=== PATIENT | female | born 1985 | race Caucasian/White ===

== ENCOUNTER 2017-06-03 09:00 | Outpatient (CLI) | payer BC ==
--- NOTE | 2017-06-03 16:12 | MRI ---
BRAIN MRI WITH AND WITHOUT CONTRAST: Date: 06-03-17 Comparison: 04-04-16 History: Seizures, speech abnormality, history of left sided craniotomy, re-evaluate left frontal lob e lesion. Technique: Multiplanar, multisequence MR imaging of the brain obtained with and without contrast usin g the seizure protocol. FINDINGS: The diffusion weighted imaging demonstrates no evidence for acute infarction. There is polypoid mucosal thickening involving bilateral maxillary sinuses and the right sphenoid sin us. Arterial flow voids at axial level of skull base appear grossly unremarkable on the T2 weighted i maging. There is evidence of prior left frontal craniotomy. There is no midline shift, mass effect, or ventricular enlargement. Coronal gradient echo imaging demonstrates no evidence for intracranial hemorrhage or abnormal intrac ranial calcification. Coronal thin section imaging through the hippocampi demonstrates symmetric normal structure size and signal intensity of the hippocampi. The regional bone marrow signal intensity is within normal limits. There is an intraaxial lesion centered in the posterolateral left frontal lobe with increased T2 sign al involving the subcortical white matter. This area of signal abnormality is much smaller than on [facility] 02-19-12 study. When compared to the 04-04-16 exam, this area of subcortical T2 hyperintensity appea rs grossly unchanged. It is difficult to accurately measure secondary to its ill-defined nature. It m easures up to 2.1 cm in AP dimension and up to 1.9 cm in transverse dimension. There is a T2 hyperint ense 1.4 cm area of signal abnormality just anterior to this which may be extraaxial in nature. It is unchanged when compared to the 04-04-16 exam. Within the area of intraaxial signal abnormality descri bed above, there is a focal 5-6 mm T2 hyperintense focus suggesting an area of internal cystic change . The post contrast imaging again demonstrates no significant enhancement involving the left frontal intraaxial lesion. Post contrast imaging demonstrates no abnormal enhancement within the brain parenchyma. IMPRESSION: Deep to the left frontal craniotomy site there is an intraaxial lesion with no appreciable enhancemen t or mass effect. 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 Continued follow up is thus advised. POS: [facility]
== END 2017-06-03 09:01 | disposition home or self-care (01) ==
LOC: MRI 09:00
PROVIDERS: ATTEND Student in an Organized Health Care Education/Training Program
DX: R56.9 Unspecified convulsions (principal); R47.9 Unspecified speech disturbances; M62.81 Muscle weakness (generalized); R20.0 Anesthesia of skin; C71.1 Malignant neoplasm of frontal lobe; G93.9 Disorder of brain, unspecified
CPT/HCPCS: 70553

== ENCOUNTER 2019-06-15 15:07 | Inpatient (IN) | payer BC ==
[2019-06-15] MEDS ORDERED: Enoxaparin Sodium 100 MG/ML SYRINGE ONE (16:11)
[2019-06-15 16:32] LABS: #Lymphocytes 2.7 thou/uL (1.20-3.40); #Monocytes 0.8 thou/uL (0.11-0.59); #Neutrophils 8.5 thou/uL (1.40-6.50); %Basophils 0.3 % (0.0-1.0); %Eosinophils 0.3 % (0.0-10.0); %Lymphocytes 22.4 % (21.0-51.0); %Monocytes 6.4 % (0.0-10.0); %Neutrophils 70.7 % (42.0-75.0); Mean Corpuscular HGB CONC 34.5 g/dL (32.0-36.0); Mean Corpuscular Hemoglobin 33.1 pg (27.0-31.0); Mean Corpuscular Volume 95.9 fL (78.0-98.0); Mean Platelet Volume 8.3 fL (7.4-10.4); Platelet Count 207 thou/uL (130-400); RBC Distribution Width 11.9 % (11.5-14.5); Red Blood Cell (RBC) Count 4.83 mill/uL (4.20-5.40)
--- NOTE | 2019-06-15 16:32 | RAD ---
Exam: Chest one view HISTORY:Dyspnea Comparison: 07/06/2012 FINDINGS: Cardiac silhouette: Normal Aorta: Unremarkable Pulmonary vessels: Normal Costophrenic angles: Clear LUNGS: No masses or consolidation. Pneumothorax: None Osseous abnormalities: None IMPRESSION: No acute cardiopulmonary process.
[2019-06-15 16:35] LABS: INR-International Normal Ratio 1.1; Prothrombin Time 13.7 SEC (12.0-14.7)
[2019-06-15 16:36] LABS: PTT 27.8 SEC (22.9-36.1)
[2019-06-15 17:01] LABS: ALT (SGPT) 13 U/L (8-55); AST (SGOT) 18 U/L (5-34); Albumin 4.3 g/dL (3.5-5.0); Alkaline Phosphatase 96 U/L (40-110); Anion Gap 19 mmol/L (10-20); BUN (Urea Nitrogen) 13 mg/dL (7.0-18.7); Bilirubin, Total 0.7 mg/dL (0.2-1.2); Calc. Creatinine Clearance 0 mL/min (70-130); Calcium 9.5 mg/dL (7.8-10.44); Carbon Dioxide 17 mmol/L (22-29); Chloride 108 mmol/L (98-107); Estimated GFR-MDRD 51; Globulin 3.3 g/dL (2.4-3.5); Glucose 82 mg/dL (70-105); Potassium 3.9 mmol/L (3.5-5.1); Protein, Total 7.6 g/dL (6.0-8.3); Sodium 140 mmol/L (136-145)
[2019-06-15 17:13] LABS: CKMB 2.2 ng/mL (0-6.6)
[2019-06-15] MEDS ORDERED: Senokot S 8.6-50 MG TAB PO PRN (18:03)
[2019-06-15] MEDS ORDERED: Ondansetron PF 4 MG/2 ML Vial IVP PRN (18:03)
[2019-06-15] MEDS ORDERED: Acetaminophen 325 MG TAB PO PRN (18:03)
--- NOTE | 2019-06-15 18:21 | PDOC.HHP ---
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 Denies any manohar chest pain, lightheadedness/dizziness. Tells me that she has not been moving much given right sided weakness. During initial ED evaluation she is noted to have acute pulmonary embolism/ saddle and acute DVT. Hemodynamically she appears stable only with tachycardia in the 120s but maintaining good blood pressure and saturation on room air. Case was discussed with neurosurgery and pulmonary medicine marketing operations intern who have recommended AC with Lovenox and against use of thrombolytics. Hospitalist ROS - Review of Systems Constitutional: denies: fever, chills, sweats, weakness, malaise, other Eyes: denies: pain, vision change, conjunctivae inflammation, eyelid inflammation, redness, other Respiratory: reports: shortness of breath, SOB with excertion. denies: cough, pleuritic pain, wheezing Cardiovascular: denies: chest pain, palpitations, orthopnea, paroxysmal noc. dyspnea, edema Gastrointestinal: denies: nausea, vomiting, abdominal pain, diarrhea Genitourinary: denies: dysuria, frequency, incontinence Musculoskeletal: denies: neck pain, shoulder pain Neurological: reports: weakness (Right sided upper and lower extremity weakness likely due to ischemic stroke). denies: numbness, change in speech, confusion - Medication Medications: Keppra oral SatJun 15, 2019 15:29 GIOVANNY Muse [place] tablet : Strength - 500 mg : ORAL Patient Dose: 1 tab(s) Oral 2 times a day. "BLOOD PRESSURE MEDICATION" SatJun 15, 2019 15:30 GIOVANNY Muse [place] UNKNOWN. aspirin oral SatJun 15, 2019 17:58 GIOVANNY Muse [place] tablet : Strength - 81 mg : ORAL Patient Dose: 1 tab(s) Oral once a day. Hospitalist History - Past Medical History Pulmonary: reports: CVA/TIA/stroke SPOOL TENDER: reports: CVA, Seizure Heme/Onc: reports: Cancer - Past Surgical History Past Surgical History: reports: Other (Attempted brain tumor resection) - Family History Family History: reports: no pertinent history - Exam General Appearance: NAD, awake alert Eye: PERRL, anicteric sclera ENT: normocephalic atraumatic, no oropharyngeal lesions Neck: supple, symmetric, no JVD Heart: no murmur, no gallops, no rubs Heart - other findings: Tachycardic Respiratory: CTAB, no wheezes Extremities: no cyanosis, no clubbing, no edema Neurological: cranial nerve grossly intact Neurological - other findings: Righ sided weakness/hemiparesis Musculoskeletal: normal tone. negative: normal strength (Right sided upper/ lower extremity weakness 2/5) Psychiatric: normal affect, normal behavior, A&O x 3, oriented to person Hospitalist Results - Labs Result Diagrams: 06/15/19 16:23 06/15/19 16:23 Lab results: WBC 12.0 thou/uL (4.8-10.8) H 06/15/19 16:23 Hgb 16.0 g/dL (12.0-16.0) 06/15/19 16:23 Hct 46.3 % (36.0-47.0) 06/15/19 16:23 MCV 95.9 fL (78.0-98.0) 06/15/19 16:23 Plt Count 207 thou/uL (130-400) 06/15/19 16:23 Neutrophils % 70.7 % (42.0-75.0) 06/15/19 16:23 Sodium 140 mmol/L (136-145) 06/15/19 16:23 Potassium 3.9 mmol/L (3.5-5.1) 06/15/19 16:23 Chloride 108 mmol/L (98-107) H 06/15/19 16:23 Carbon Dioxide 17 mmol/L (22-29) L 06/15/19 16:23 BUN 13 mg/dL (7.0-18.7) 06/15/19 16:23 Creatinine 1.20 mg/dL (0.6-1.1) H 06/15/19 16:23 Glucose 82 mg/dL (70-105) 06/15/19 16:23 Calcium 9.5 mg/dL (7.8-10.44) 06/15/19 16:23 Total Bilirubin 0.7 mg/dL (0.2-1.2) 06/15/19 16:23 AST 18 U/L (5-34) 06/15/19 16:23 ALT 13 U/L (8-55) 06/15/19 16:23 Alkaline Phosphatase 96 U/L (40-110) 06/15/19 16:23 CK-MB (CK-2) 2.2 ng/mL (0-6.6) 06/15/19 16:23 Troponin I 0.146 ng/mL (< 0.028) H 06/15/19 16:23 B-Natriuretic Peptide 257.5 pg/mL (0-100) H 06/15/19 16:23 Serum Total Protein 7.6 g/dL (6.0-8.3) 06/15/19 16:23 Albumin 4.3 g/dL (3.5-5.0) 06/15/19 16:23 - Radiology Interpretation CT scan - chest Status: report reviewed by me (Offical report showing acute PE reviewed) Hospitalist H&P A/P - Problem (1) Pulmonary embolism Code(s): I26.99 - OTHER PULMONARY EMBOLISM WITHOUT ACUTE COR PULMONALE Status : Acute Qualifiers: Pulmonary embolism type: saddle Chronicity: acute Acute cor pulmonale presence: unspecified Qualified Code(s): I26.92 - Saddle embolus of pulmonary artery without acute cor pulmonale (2) DVT (deep venous thrombosis) Code(s): I82.409 - ACUTE EMBOLISM AND THOMBOS UNSP DEEP VN UNSP LOWER EXTREMITY Status: Acute (3) CVA (cerebral vascular accident) Code(s): I63.9 - CEREBRAL INFARCTION, UNSPECIFIED Status: Acute (4) Brain cancer Code(s): C71.9 - MALIGNANT NEOPLASM OF BRAIN, UNSPECIFIED Status: Chronic (5) Seizure disorder Code(s): G40.909 - EPILEPSY, UNSP, NOT INTRACTABLE, WITHOUT STATUS EPILEPTICUS Status: Chronic - Plan Plan: ASSESSMENT/PLAN Acute pulmonary embolism/saddle Admit patient to CCU for closer monitoring Currently hemodynamically stable only with borderline tachycardia Started on therapeutic Lovenox after discussion with neurosurgery and pulmonary medicine Continue with gentle IVFs to maintain hemodynamics Check echocardiogram in AM to assess right heart strain DVT Likely in setting of recent imobility due to weakness after CVA On exam maintaining pulses with no evidence of vascular compromise Originating source for PE Started on therapeutic Lovenox for anticoagulation Avoid SCDs Brain tumor Presumed recurrence of tumor based on recent MRI Per recent imaging no mass effect or edema She does have new onset of right sided weakness Neurosurgery follows Seizure disorder Per patient this occurred after tumor treatment No recent seizure activity per patient She was recently evaluated due to right sided weakness which remains & not consistent with seizure Continue with Keppra Seizure precautions for now DVT PPX: Therapeutic Lovenox FULL CODE
[2019-06-15 19:42] VITALS: BMI 41.7
[2019-06-15] MEDS ORDERED: niCARdipine 25 MG in Sodium Chloride 0.9% 250 ML 240 ML IVPB SCH (20:00)
[2019-06-15] MEDS ORDERED: cloNIDine 0.1 MG TAB PO SCH (20:15)
[2019-06-15] MEDS: Famotidine/PF 20 mg/2ml Vial SLOW IVP SCH (20:21)
[2019-06-15] MEDS: Sodium Chloride 0.9% 1,000 ML IV SCH (20:21)
--- NOTE | 2019-06-15 21:31 | CON ---
DATE OF CONSULTATION: 06/15/2019 HISTORY OF PRESENT ILLNESS: Carly Cardenas is a very pleasant 33-year-old female who presented with symptoms of waxing and waning right hemiparesis recently. She presented to [facility]. They told her she was having a seizure and sent her home. She got home, got upstairs and said she lost all function of her right side. She apparently had an MRI done shortly thereafter and discussed the MRI findings with Dr. Allen, who felt she had a stroke. Reviewing the MRI report from June 03, the interpretation was an intra-axial lesion with no enhancement or mass effect. The radiologist interpreted it as a low-grade neoplasm, but she is 9 years out, she tells me from her neoplasm. She had an MRI done in April 04, 2016, which apparently was similar. Today, she developed tachycardia and some respiratory symptoms and subsequently presented to the emergency room, was found to have evidence of thromboembolic disease. She was felt to be an acceptable candidate for Lovenox, but it was not recommended that she have a thrombolytic. I interviewed her and she is actually talking comfortably on room air. I suspect this is subacute. Venogram shows a partial thrombus in the right lower extremity involving the popliteal vein and the posterior tibial vein, but there is no clot in the proximal large veins. PAST MEDICAL HISTORY: Remarkable for hypertension. She cannot remember the name of the medicine she takes. Apparently, [facility] started her on Keppra from what she tells me. She had an incomplete resection of her brain tumor as they were getting into her speech center, so she apparently had stereotactic radiation after that followed by chemotherapy. She is followed at [facility] for at least 4 years after that and then followed by her neurosurgeon in [place] until he several years back. FAMILY HISTORY: Negative for lung disease in early age. SOCIAL HISTORY: Not obtained. REVIEW OF SYSTEMS: 10 point review of systems completed, otherwise negative. PHYSICAL EXAMINATION: GENERAL: She is in no distress, talking in complete sentences. VITAL SIGNS: She has resting tachycardia with heart rate of 112. She is in sinus rhythm. She is mildly hypertensive at 145/110. Respiratory rate is in the 20s. NEUROLOGIC: She is weak in her right upper extremity and cannot move her right lower extremity, she says. HEAD AND NECK: Otherwise unremarkable. LUNGS: Clear. HEART: Regular rhythm. S1 and S2 are normal. ABDOMEN: Soft and nontender. EXTREMITIES: Without clubbing, cyanosis or edema. LABORATORY DATA: White count 12, hemoglobin 16, platelets 207. Sodium 140, potassium 3.9, chloride 108, bicarb 17, BUN 13, creatinine 1.2. IMPRESSION: Thromboembolic disease secondary to her hemiparesis and bedridden state. I doubt she has a hypercoagulable state, but the thrombosis panel needs to be sent since she is 33 years of age. Lovenox is reasonable. I think she should be in the Critical Care Unit for now, watch for signs of bleeding or any change in her neurological status. I suspect she will gradually improve. Given that she has distal residual clot, there is no indication for placement of a filter at this point in time in my opinion. This is a 70-minute consult, with greater than 50% of the time spent on the unit coordinating care. Job ID: [id number] MTDD
[2019-06-15 23:03] LABS: Troponin I 0.137 ng/mL (< 0.028)
[2019-06-16 03:19] LABS: #Basophils 0.1 thou/uL (0.0-0.2); #Eosinphils 0.1 thou/uL (0.0-0.7); #Lymphocytes 2.4 thou/uL (1.20-3.40); #Monocytes 0.7 thou/uL (0.11-0.59); #Neutrophils 7.4 thou/uL (1.40-6.50); %Basophils 0.5 % (0.0-1.0); %Eosinophils 0.5 % (0.0-10.0); %Lymphocytes 22.7 % (21.0-51.0); %Monocytes 6.2 % (0.0-10.0); Hemoglobin 14.3 g/dL (12.0-16.0); Mean Corpuscular HGB CONC 34.6 g/dL (32.0-36.0); Mean Corpuscular Hemoglobin 33.2 pg (27.0-31.0); Mean Platelet Volume 8.3 fL (7.4-10.4); Platelet Count 191 thou/uL (130-400); RBC Distribution Width 11.9 % (11.5-14.5); White Blood Cell (WBC) Count 10.6 thou/uL (4.8-10.8)
[2019-06-16 03:40] LABS: Anion Gap 14 mmol/L (10-20); BUN (Urea Nitrogen) 13 mg/dL (7.0-18.7); Calc. Creatinine Clearance 148 mL/min (70-130); Calcium 8.9 mg/dL (7.8-10.44); Carbon Dioxide 19 mmol/L (22-29); Chloride 111 mmol/L (98-107); Estimated GFR-MDRD 64; Glucose 96 mg/dL (70-105); Potassium 3.6 mmol/L (3.5-5.1); Sodium 140 mmol/L (136-145)
[2019-06-16] MEDS: Sodium Chloride 0.9% 1,000 ML IV SCH (03:54)
[2019-06-16 03:55] LABS: PTT 36.3 SEC (22.9-36.1)
[2019-06-16 03:56] LABS: INR-International Normal Ratio 1.1; Prothrombin Time 14.6 SEC (12.0-14.7)
[2019-06-16 04:10] LABS: D-Dimer Test 5.55 *mcg/mL (0.27-0.43)
[2019-06-16] MEDS: Famotidine/PF 20 mg/2ml Vial SLOW IVP SCH (08:35)
[2019-06-16] MEDS: Enoxaparin Sodium 120 MG/0.8 ML SYRINGE SC SCH ×2 (08:35→20:03)
[2019-06-16 09:51] LABS: HEX PHOS LA Tube 1 47.3 SEC; HEX PHOS LA Tube 2 42.8 SEC; Hexagonal Phospholipid Neut 4.5 SEC (0-8.0)
[2019-06-16] MEDS ORDERED: Lacosamide 50 mg Tablet PO SCH (11:30)
[2019-06-16] MEDS ORDERED: Zonisamide 100 MG CAP PO SCH (11:30)
[2019-06-16] MEDS ORDERED: OXcarbazepine 150 MG TAB PO SCH (11:30)
[2019-06-16] MEDS ORDERED: levETIRAcetam 500 MG TAB PO SCH (11:30)
[2019-06-16 14:56] LABS: Cardiolipin IgA Ab 2.4 APL-U/mL (<14 Negative); Cardiolipin IgG Ab 0.7 GPL-U/mL (<10 Negative); EliA APS New Method **** NEW METHOD ****
--- NOTE | 2019-06-16 14:59 | PRG ---
DATE OF SERVICE: 06/16/2019 SUBJECTIVE: She says she is feeling better. She is weak in her right side, but clinically unchanged. Her hemodynamics have been stable. OBJECTIVE: VITAL SIGNS: Heart rate is 110. Her oximetry is up to 98% earlier today on room air. LUNGS: Clear. HEART: Regular rhythm. ABDOMEN: Soft. EXTREMITIES: Without edema. LABORATORY DATA: White count 10.6, hemoglobin 14.3, platelets 191,000. Sodium 140, potassium 3.6, chloride 111, bicarb 19, BUN 13, creatinine 0.99. IMPRESSION AND PLAN: 1. Thromboembolic disease that is likely subacute. 2. 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 Hopefully, we can switch her to p.o. anticoagulants tomorrow and she will go back to rehab the next day. Echocardiogram shows right ventricular strain and enlarged right ventricular cavity suggesting that she has had this clot burden for quite some time. We will continue to follow. Job ID: [id number]
[2019-06-16] MEDS: Famotidine 20 MG TAB PO SCH (20:03)
[2019-06-16] MEDS: Lacosamide 50 mg Tablet PO SCH (20:03)
[2019-06-16] MEDS: Zonisamide 100 MG CAP PO SCH (20:04)
[2019-06-16] MEDS: levETIRAcetam 500 MG TAB PO SCH (20:04)
[2019-06-16] MEDS: OXcarbazepine 150 MG TAB PO SCH (20:04)
--- NOTE | 2019-06-16 20:13 | PDOC.HOSPP ---
- Subjective Encounter Date: 06/16/19 Subjective: The patient was seen and examined this morning. She had known complaints at that time. Denies chest pain or shortness of breath. - Objective Vital Signs & Weight: Vital Signs (12 hours) Temp Pulse Ox 06/16/19 19:03 96 06/16/19 19:00 97.6 F 06/16/19 16:00 97.9 F 06/16/19 12:00 98.8 F Weight Weight 258 lb 6.108 oz Most Recent Monitor Data Heart Rate from ECG 107 NIBP 157/117 NIBP BP-Mean 130 Respiration from ECG 25 SpO2 95 I&O: 06/15/19 06/16/19 06/17/19 06:59 06:59 06:59 Intake Total 1260 1765 Output Total 750 1250 Balance 510 515 Result Diagrams: 06/16/19 03:06 06/16/19 03:03 Hospitalist ROS - Medication Medications: Active Medications Generic Name Dose Route Start Last Admin Trade Name Freq PRN Reason Stop Dose Admin Enoxaparin Sodium 120 mg 06/16/19 09:00 06/16/19 20:03 Lovenox SC 120 mg 0900,2100 COURTNEY Administration Famotidine 20 mg 06/16/19 21:00 06/16/19 20:03 Pepcid PO 20 mg Q12HR COURTNEY Administration Sodium Chloride 1,000 mls @ 0 mls/hr 06/15/19 18:15 06/16/19 03:54 Normal Saline 0.9% IV 1,000 mls .Q0M COURTNEY Administration KVO Lacosamide 200 mg 06/16/19 21:00 06/16/19 20:03 Vimpat PO 200 mg BID COURTNEY Administration Levetiracetam 2,000 mg 06/16/19 21:00 06/16/19 20:04 Keppra PO 2,000 mg BID COURTNEY Administration Oxcarbazepine 150 mg 06/16/19 21:00 06/16/19 20:04 Trileptal PO 150 mg BID COURTNEY Administration Zonisamide 200 mg 06/16/19 21:00 06/16/19 20:04 Zonisamide PO 200 mg HS COURTNEY Administration - Exam General Appearance: awake alert ENT: normocephalic atraumatic Neck: supple, no JVD Heart: RRR Respiratory: CTAB, no wheezes, no rales, no ronchi Gastrointestinal: soft, non-tender, non-distended Hosp A/P - Plan 06/14: 1-Acute pulmonary embolism/saddle Admit patient to CCU for closer monitoring Currently hemodynamically stable only with borderline tachycardia Started on therapeutic Lovenox after discussion with neurosurgery and pulmonary medicine Continue with gentle IVFs to maintain hemodynamics Check echocardiogram in AM to assess right heart strain 2-DVT Likely in setting of recent imobility due to weakness after CVA On exam maintaining pulses with no evidence of vascular compromise Originating source for PE Started on therapeutic Lovenox for anticoagulation Avoid SCDs 3-Brain tumor Presumed recurrence of tumor based on recent MRI Per recent imaging no mass effect or edema She does have new onset of right sided weakness Neurosurgery follows 4-Seizure disorder Per patient this occurred after tumor treatment No recent seizure activity per patient She was recently evaluated due to right sided weakness which remains & not consistent with seizure Continue with Keppra Seizure precautions for now DVT PPX: Therapeutic Lovenox FULL CODE 06/15: The patient is asymptomatic at this time. Echocardiogram showing right ventricular dilatation and hypokinesia with tricuspid regurg regurgitation and right atrial enlargement likely due to the large clot burden and increased pulmonary artery pressures. Continue therapeutic Lovenox. She is hemodynamically stable.
[2019-06-17] MEDS ORDERED: cloNIDine 0.1 MG TAB PO PRN (01:12)
[2019-06-17] MEDS: Enoxaparin Sodium 120 MG/0.8 ML SYRINGE SC SCH (09:04)
[2019-06-17] MEDS: Famotidine 20 MG TAB PO SCH ×2 (09:05→21:39)
[2019-06-17] MEDS: Lacosamide 50 mg Tablet PO SCH ×2 (09:07→21:38)
[2019-06-17] MEDS: levETIRAcetam 500 MG TAB PO SCH ×2 (09:08→21:38)
[2019-06-17] MEDS: OXcarbazepine 150 MG TAB PO SCH ×2 (09:09→21:39)
[2019-06-17] MEDS: Zonisamide 100 MG CAP PO SCH ×2 (09:10→21:37)
[2019-06-17] MEDS: Amlodipine 5 MG TAB PO SCH (09:35)
--- NOTE | 2019-06-17 14:24 | PRG ---
DATE OF SERVICE: 06/17/2019 SUBJECTIVE: Ms. Cardenas is better. She is not short of breath. Norvasc was added this morning. It may be increased tomorrow. OBJECTIVE: VITAL SIGNS: Heart rates in the 90s now. Blood pressure . LUNGS: Unchanged. HEART: Unchanged. ABDOMEN: Unchanged. IMPRESSION: 1. Thromboembolic disease. Thrombosis panel is pending. 2. Recent thrombotic cerebrovascular accident. 3. History of brain tumor, clinically in remission/cured. 4. Right hemiparesis. PLAN: She will probably go back to rehab tomorrow. She is stable. She will be converted to p.o. anticoagulant today. Job ID: [id number]
--- NOTE | 2019-06-17 14:36 | PDOC.HOSPP ---
- Subjective Encounter Date: 06/17/19 Subjective: No new complains. - Objective Vital Signs & Weight: Vital Signs (12 hours) Temp Pulse BP Pulse Ox 06/17/19 09:35 93 131/103 H 06/17/19 08:00 97.4 F L 06/17/19 07:50 98 06/17/19 07:37 98 06/17/19 03:00 97.9 F Weight Weight 258 lb 6.108 oz Most Recent Monitor Data Heart Rate from ECG 96 NIBP 129/102 NIBP BP-Mean 111 Respiration from ECG 22 SpO2 96 I&O: 06/16/19 06/17/19 06/18/19 06:59 06:59 06:59 Intake Total 1260 2170 1148 Output Total 750 1475 850 Balance 510 695 298 Result Diagrams: 06/16/19 03:06 06/16/19 03:03 Hospitalist ROS - Medication Medications: Active Medications Generic Name Dose Route Start Last Admin Trade Name Freq PRN Reason Stop Dose Admin Amlodipine Besylate 5 mg 06/17/19 09:00 06/17/19 09:35 Norvasc PO 5 mg DAILY COURTNEY Administration Clonidine 0.1 mg 06/17/19 01:12 06/17/19 01:22 Catapres PO 0.1 mg Q6H PRN Administration Hypertension Famotidine 20 mg 06/16/19 21:00 06/17/19 09:05 Pepcid PO 20 mg Q12HR COURTNEY Administration Sodium Chloride 1,000 mls @ 0 mls/hr 06/15/19 18:15 06/16/19 03:54 Normal Saline 0.9% IV 1,000 mls .Q0M COURTNEY Administration KVO Lacosamide 200 mg 06/16/19 21:00 06/17/19 09:07 Vimpat PO 200 mg BID COURTNEY Administration Levetiracetam 2,000 mg 06/16/19 21:00 06/17/19 09:08 Keppra PO 2,000 mg BID COURTNEY Administration Oxcarbazepine 150 mg 06/16/19 21:00 06/17/19 09:09 Trileptal PO 150 mg BID COURTNEY Administration Zonisamide 200 mg 06/16/19 21:00 06/16/19 20:04 Zonisamide PO 200 mg HS COURTNEY Administration Zonisamide 300 mg 06/17/19 09:00 06/17/19 09:10 Zonisamide PO 300 mg QAM COURTNEY Administration - Exam General Appearance: awake alert ENT: normocephalic atraumatic Neck: supple, no JVD Heart: RRR Respiratory: normal chest expansion, no tachypnea Neurological: cranial nerve grossly intact Psychiatric: normal affect, A&O x 3 Hosp A/P - Plan 06/14: 1-Acute pulmonary embolism/saddle Admit patient to CCU for closer monitoring Currently hemodynamically stable only with borderline tachycardia Started on therapeutic Lovenox after discussion with neurosurgery and pulmonary medicine Continue with gentle IVFs to maintain hemodynamics Check echocardiogram in AM to assess right heart strain 2-DVT Likely in setting of recent imobility due to weakness after CVA On exam maintaining pulses with no evidence of vascular compromise Originating source for PE Started on therapeutic Lovenox for anticoagulation Avoid SCDs 3-Brain tumor Presumed recurrence of tumor based on recent MRI Per recent imaging no mass effect or edema She does have new onset of right sided weakness Neurosurgery follows 4-Seizure disorder Per patient this occurred after tumor treatment No recent seizure activity per patient She was recently evaluated due to right sided weakness which remains & not consistent with seizure Continue with Keppra Seizure precautions for now DVT PPX: Therapeutic Lovenox FULL CODE 06/15: The patient is asymptomatic at this time. Echocardiogram showing right ventricular dilatation and hypokinesia with tricuspid regurg regurgitation and right atrial enlargement likely due to the large clot burden and increased pulmonary artery pressures. Continue therapeutic Lovenox. She is hemodynamically stable. 06/16: Lovenox switched to Eliquis. PT & OT evaluation. CM consult for rehab placement.
[2019-06-17] MEDS: Apixaban 5 MG TAB PO SCH (21:39)
[2019-06-18 04:26] LABS: Hemoglobin 14.3 g/dL (12.0-16.0); Platelet Count 221 thou/uL (130-400)
[2019-06-18] MEDS: Amlodipine 5 MG TAB PO SCH (08:47)
[2019-06-18] MEDS: Apixaban 5 MG TAB PO SCH ×2 (08:47→20:39)
[2019-06-18] MEDS: Famotidine 20 MG TAB PO SCH ×2 (08:48→20:39)
[2019-06-18] MEDS: levETIRAcetam 500 MG TAB PO SCH ×2 (08:48→20:39)
[2019-06-18] MEDS: Zonisamide 100 MG CAP PO SCH ×2 (08:49→20:40)
[2019-06-18] MEDS: OXcarbazepine 150 MG TAB PO SCH ×2 (08:49→20:39)
[2019-06-18] MEDS: Lacosamide 50 mg Tablet PO SCH ×2 (09:48→20:48)
--- NOTE | 2019-06-18 10:11 | PRG ---
DATE OF SERVICE: 06/18/2019 SUBJECTIVE: Carly Cardenas says she is feeling better. OBJECTIVE: VITAL SIGNS: Stable. Heart rates down in the 80s. She is afebrile. Respiratory rates in the teens. She is on room air, saturating 96% to 98%, blood pressure 121/84. LUNGS: Unchanged. HEART: Unchanged. ABDOMEN: Unchanged. IMPRESSION: Subacute thromboembolic disease. PLAN: 1. Continue anticoagulation with loading dose of Eliquis, eventually decreasing the dose. She should follow up with me in 2 to 3 months when she is out of rehab. 2. Thrombotic CVA as the downstream effect of her radiation. 3. Thrombotic CVA and DVT at young age. Thrombosis panel is pending. She does have a weakly positive anticardiolipin antibody, which in my opinion would likely be unrelated to this event. I suspect her thrombotic CVA is related to vascular changes that are a downstream effect of radiation. Job ID: [id number]
[2019-06-18 12:08] LABS: Factor VIII Test 224.8 % ACTIVE (56-157); Protein C Activity 82 % (78-152)
--- NOTE | 2019-06-18 20:09 | PDOC.HOSPP ---
- Subjective Encounter Date: 06/18/19 Subjective: No new complains. - Objective Vital Signs & Weight: Vital Signs (12 hours) Temp Pulse Pulse Pulse Resp BP BP 06/18/19 15:57 90 108 H 134/86 137/95 H 06/18/19 15:34 98.1 F 89 16 06/18/19 11:06 98.0 F 96 16 06/18/19 08:47 84 06/18/19 08:45 92 89 154/103 H 136/96 H BP Pulse Ox 06/18/19 15:57 06/18/19 15:34 131/90 95 06/18/19 11:06 131/89 100 06/18/19 08:47 06/18/19 08:45 Weight Weight 258 lb 6.108 oz Most Recent Monitor Data Heart Rate from ECG 96 NIBP 129/102 NIBP BP-Mean 111 Respiration from ECG 22 SpO2 96 I&O: 06/17/19 06/18/19 06/19/19 06:59 06:59 06:59 Intake Total 2170 1448 Output Total 1475 1600 Balance 695 -152 Result Diagrams: 06/18/19 04:01 06/18/19 04:01 Hospitalist ROS - Medication Medications: Active Medications Generic Name Dose Route Start Last Admin Trade Name Freq PRN Reason Stop Dose Admin Amlodipine Besylate 5 mg 06/17/19 09:00 06/18/19 08:47 Norvasc PO 5 mg DAILY COURTNEY Administration Apixaban 10 mg 06/17/19 21:00 06/18/19 08:47 Eliquis PO 10 mg BID COURTNEY Administration Clonidine 0.1 mg 06/17/19 01:12 06/17/19 01:22 Catapres PO 0.1 mg Q6H PRN Administration Hypertension Famotidine 20 mg 06/16/19 21:00 06/18/19 08:48 Pepcid PO 20 mg Q12HR COURTNEY Administration Lacosamide 200 mg 06/16/19 21:00 06/18/19 09:48 Vimpat PO 200 mg BID COURTNEY Administration Levetiracetam 2,000 mg 06/16/19 21:00 06/18/19 08:48 Keppra PO 2,000 mg BID COURTNEY Administration Oxcarbazepine 150 mg 06/16/19 21:00 06/18/19 08:49 Trileptal PO 150 mg BID COURTNEY Administration Zonisamide 200 mg 06/16/19 21:00 06/17/19 21:37 Zonisamide PO 200 mg HS COURTNEY Administration Zonisamide 300 mg 06/17/19 09:00 06/18/19 08:49 Zonisamide PO 300 mg QAM COURTNEY Administration - Exam General Appearance: awake alert ENT: normocephalic atraumatic Neck: supple Respiratory: normal chest expansion, no tachypnea Extremities: no cyanosis, no clubbing Hosp A/P - Plan 06/14: 1-Acute pulmonary embolism/saddle Admit patient to CCU for closer monitoring Currently hemodynamically stable only with borderline tachycardia Started on therapeutic Lovenox after discussion with neurosurgery and pulmonary medicine Continue with gentle IVFs to maintain hemodynamics Check echocardiogram in AM to assess right heart strain 2-DVT Likely in setting of recent imobility due to weakness after CVA On exam maintaining pulses with no evidence of vascular compromise Originating source for PE Started on therapeutic Lovenox for anticoagulation Avoid SCDs 3-Brain tumor Presumed recurrence of tumor based on recent MRI Per recent imaging no mass effect or edema She does have new onset of right sided weakness Neurosurgery follows 4-Seizure disorder Per patient this occurred after tumor treatment No recent seizure activity per patient She was recently evaluated due to right sided weakness which remains & not consistent with seizure Continue with Keppra Seizure precautions for now DVT PPX: Therapeutic Lovenox FULL CODE 06/15: The patient is asymptomatic at this time. Echocardiogram showing right ventricular dilatation and hypokinesia with tricuspid regurg regurgitation and right atrial enlargement likely due to the large clot burden and increased pulmonary artery pressures. Continue therapeutic Lovenox. She is hemodynamically stable. 06/16: Lovenox switched to Eliquis. PT & OT evaluation. CM consult for rehab placement. 06/17: Pending approval for rehab.
[2019-06-19] MEDS: Apixaban 5 MG TAB PO SCH ×2 (08:55→21:19)
[2019-06-19] MEDS: Lacosamide 50 mg Tablet PO SCH ×2 (08:55→21:17)
[2019-06-19] MEDS: Famotidine 20 MG TAB PO SCH ×2 (08:55→21:18)
[2019-06-19] MEDS: Amlodipine 5 MG TAB PO SCH (08:55)
[2019-06-19] MEDS: levETIRAcetam 500 MG TAB PO SCH ×2 (08:55→21:18)
[2019-06-19] MEDS: OXcarbazepine 150 MG TAB PO SCH ×2 (08:55→21:18)
[2019-06-19] MEDS: Zonisamide 100 MG CAP PO SCH ×2 (08:56→21:18)
--- NOTE | 2019-06-19 20:02 | PDOC.HOSPP ---
- Subjective Encounter Date: 06/19/19 Subjective: No new complains. Denies chest pain or SOB. - Objective Vital Signs & Weight: Vital Signs (12 hours) Temp Pulse Pulse Pulse Resp BP BP 06/19/19 19:30 97.7 F 81 18 06/19/19 15:20 97.8 F 96 16 06/19/19 14:21 109 H 108 H 153/110 H 173/101 H 06/19/19 13:14 97 139/95 H 06/19/19 11:40 97.9 F 92 16 06/19/19 09:59 99 98 138/90 155/94 H BP Pulse Ox 06/19/19 19:30 132/87 97 06/19/19 15:20 127/79 93 L 06/19/19 14:21 06/19/19 13:14 06/19/19 11:40 136/90 95 06/19/19 09:59 Weight Weight 258 lb 6.108 oz Most Recent Monitor Data Heart Rate from ECG 96 NIBP 129/102 NIBP BP-Mean 111 Respiration from ECG 22 SpO2 96 I&O: 06/18/19 06/19/19 06/20/19 06:59 06:59 06:59 Intake Total 1448 2320 Output Total 6273 765 5914 Balance -152 -250 1270 Result Diagrams: 06/18/19 04:01 06/18/19 04:01 Hospitalist ROS - Medication Medications: Active Medications Generic Name Dose Route Start Last Admin Trade Name Freq PRN Reason Stop Dose Admin Amlodipine Besylate 5 mg 06/17/19 09:00 06/19/19 08:55 Norvasc PO 5 mg DAILY COURTNEY Administration Apixaban 10 mg 06/17/19 21:00 06/19/19 08:55 Eliquis PO 10 mg BID COURTNEY Administration Clonidine 0.1 mg 06/17/19 01:12 06/17/19 01:22 Catapres PO 0.1 mg Q6H PRN Administration Hypertension Famotidine 20 mg 06/16/19 21:00 06/19/19 08:55 Pepcid PO 20 mg Q12HR COURTNEY Administration Lacosamide 200 mg 06/16/19 21:00 06/19/19 08:55 Vimpat PO 200 mg BID COURTNEY Administration Levetiracetam 2,000 mg 06/16/19 21:00 06/19/19 08:55 Keppra PO 2,000 mg BID COURTNEY Administration Oxcarbazepine 150 mg 06/16/19 21:00 06/19/19 08:55 Trileptal PO 150 mg BID COURTNEY Administration Zonisamide 200 mg 06/16/19 21:00 06/18/19 20:40 Zonisamide PO 200 mg HS COURTNEY Administration Zonisamide 300 mg 06/17/19 09:00 06/19/19 08:56 Zonisamide PO 300 mg QAM COURTNEY Administration - Exam General Appearance: awake alert ENT: normocephalic atraumatic Neck: supple, no JVD Heart: RRR Respiratory: CTAB, normal chest expansion, no tachypnea Gastrointestinal: soft, non-tender, non-distended, normal bowel sounds Hosp A/P - Plan 06/14: 1-Acute pulmonary embolism/saddle Admit patient to CCU for closer monitoring Currently hemodynamically stable only with borderline tachycardia Started on therapeutic Lovenox after discussion with neurosurgery and pulmonary medicine Continue with gentle IVFs to maintain hemodynamics Check echocardiogram in AM to assess right heart strain 2-DVT Likely in setting of recent imobility due to weakness after CVA On exam maintaining pulses with no evidence of vascular compromise Originating source for PE Started on therapeutic Lovenox for anticoagulation Avoid SCDs 3-Brain tumor Presumed recurrence of tumor based on recent MRI Per recent imaging no mass effect or edema She does have new onset of right sided weakness Neurosurgery follows 4-Seizure disorder Per patient this occurred after tumor treatment No recent seizure activity per patient She was recently evaluated due to right sided weakness which remains & not consistent with seizure Continue with Keppra Seizure precautions for now DVT PPX: Therapeutic Lovenox FULL CODE 06/18: The patient is asymptomatic at this time. Echocardiogram showing right ventricular dilatation and hypokinesia with tricuspid regurg regurgitation and right atrial enlargement likely due to the large clot burden and increased pulmonary artery pressures. Continue therapeutic Lovenox. She is hemodynamically stable. On Eliquis. Ready to DC to rehab when approved.
[2019-06-20 04:26] LABS: Hemoglobin 14.3 g/dL (12.0-16.0); Platelet Count 252 thou/uL (130-400)
[2019-06-20] MEDS: Amlodipine 5 MG TAB PO SCH (09:16)
[2019-06-20] MEDS: Apixaban 5 MG TAB PO SCH ×2 (09:17→20:37)
[2019-06-20] MEDS: Lacosamide 50 mg Tablet PO SCH ×2 (09:17→20:37)
[2019-06-20] MEDS: Famotidine 20 MG TAB PO SCH ×2 (09:17→20:37)
[2019-06-20] MEDS: Zonisamide 100 MG CAP PO SCH ×2 (09:17→20:40)
[2019-06-20] MEDS: OXcarbazepine 150 MG TAB PO SCH ×2 (09:18→20:39)
[2019-06-20] MEDS: levETIRAcetam 500 MG TAB PO SCH ×2 (09:18→20:39)
--- NOTE | 2019-06-20 13:25 | PDOC.HOSPP ---
- Subjective Encounter Date: 06/20/19 Encounter Time: 09:45 Subjective: no sob or palpitations or chest pain says she was ambulating at home - Objective Vital Signs & Weight: Vital Signs (12 hours) Temp Pulse Pulse Pulse Resp BP BP 06/20/19 11:19 97.9 F 88 12 06/20/19 10:14 107 H 98 145/100 H 139/94 H 06/20/19 07:27 98.4 F 81 12 06/20/19 03:29 98.0 F 80 18 BP BP Pulse Ox 06/20/19 11:19 137/93 H 92 L 06/20/19 10:14 06/20/19 07:27 125/82 95 06/20/19 03:29 122/63 96 Weight Weight 205 lb 4.8 oz Most Recent Monitor Data Heart Rate from ECG 96 NIBP 129/102 NIBP BP-Mean 111 Respiration from ECG 22 SpO2 96 I&O: 06/19/19 06/20/19 06/21/19 06:59 06:59 06:59 Intake Total 2420 Output Total 250 1050 675 Balance -250 1370 -675 Result Diagrams: 06/20/19 03:56 06/20/19 03:56 Hospitalist ROS - Medication Medications: Active Medications Generic Name Dose Route Start Last Admin Trade Name Freq PRN Reason Stop Dose Admin Amlodipine Besylate 5 mg 06/17/19 09:00 06/20/19 09:16 Norvasc PO 5 mg DAILY COURTNEY Administration Apixaban 10 mg 06/17/19 21:00 06/20/19 09:17 Eliquis PO 10 mg BID COURTNEY Administration Clonidine 0.1 mg 06/17/19 01:12 06/17/19 01:22 Catapres PO 0.1 mg Q6H PRN Administration Hypertension Famotidine 20 mg 06/16/19 21:00 06/20/19 09:17 Pepcid PO 20 mg Q12HR COURTNEY Administration Lacosamide 200 mg 06/16/19 21:00 06/20/19 09:17 Vimpat PO 200 mg BID COURTNEY Administration Levetiracetam 2,000 mg 06/16/19 21:00 06/20/19 09:18 Keppra PO 2,000 mg BID COURTNEY Administration Oxcarbazepine 150 mg 06/16/19 21:00 06/20/19 09:18 Trileptal PO 150 mg BID COURTNEY Administration Zonisamide 200 mg 06/16/19 21:00 06/19/19 21:18 Zonisamide PO 200 mg HS COURTNEY Administration Zonisamide 300 mg 06/17/19 09:00 06/20/19 09:17 Zonisamide PO 300 mg QAM COURTNEY Administration - Exam General Appearance: awake alert Eye: PERRL, anicteric sclera ENT: no oropharyngeal lesions, moist mucosa Neck: supple, no JVD Heart: RRR, no murmur Respiratory: no wheezes, no rales Gastrointestinal: soft, non-tender, non-distended, normal bowel sounds Extremities: no cyanosis, no edema Neurological: hemiplegia Psychiatric: normal affect, A&O x 3 Hosp A/P (1) DVT (deep venous thrombosis) Code(s): I82.409 - ACUTE EMBOLISM AND THOMBOS UNSP DEEP VN UNSP LOWER EXTREMITY Status: Acute Qualifiers: DVT location: lower extremity Chronicity: acute Laterality: right (2) Pulmonary embolism Code(s): I26.99 - OTHER PULMONARY EMBOLISM WITHOUT ACUTE COR PULMONALE Status : Acute Qualifiers: Pulmonary embolism type: saddle Chronicity: acute Acute cor pulmonale presence: unspecified Qualified Code(s): I26.92 - Saddle embolus of pulmonary artery without acute cor pulmonale (3) Obesity Code(s): E66.9 - OBESITY, UNSPECIFIED Status: Chronic Qualifiers: Obesity classification: adult class 1 (BMI 30 - 34.9) Body mass index: BMI 33.0-33.9 (4) CVA (cerebral vascular accident) Code(s): I63.9 - CEREBRAL INFARCTION, UNSPECIFIED Status: Chronic Qualifiers: Laterality of affected vessel: left (5) Brain cancer Code(s): C71.9 - MALIGNANT NEOPLASM OF BRAIN, UNSPECIFIED Status: Chronic (6) Seizure disorder Code(s): G40.909 - EPILEPSY, UNSP, NOT INTRACTABLE, WITHOUT STATUS EPILEPTICUS Status: Chronic - Plan h/o astrocytoma/brain ca with attempted resection in 2010 at [facility], prior radiation and chemo developed right hemiparesis in 2011 recent hospitalization for suspected sz on right side (?focal per patient) at [facility] and was added a 4th seizure med on eliquis, norvasc, vimpat, keppra, trileptal and zonisamide her current neuro is and nsx is per patient may tx to med floor awaiting rehab eval to go back
[2019-06-21] MEDS: OXcarbazepine 150 MG TAB PO SCH ×2 (08:31→20:42)
[2019-06-21] MEDS: Lacosamide 50 mg Tablet PO SCH ×2 (08:33→20:40)
[2019-06-21] MEDS: Zonisamide 100 MG CAP PO SCH ×2 (08:34→20:42)
[2019-06-21] MEDS: Famotidine 20 MG TAB PO SCH ×2 (08:35→20:40)
[2019-06-21] MEDS: levETIRAcetam 500 MG TAB PO SCH ×2 (08:35→20:42)
[2019-06-21] MEDS: Apixaban 5 MG TAB PO SCH ×2 (08:36→20:39)
[2019-06-21] MEDS: Amlodipine 5 MG TAB PO SCH (08:36)
--- NOTE | 2019-06-21 11:04 | PDOC.HOSPP ---
- Subjective Encounter Date: 06/21/19 Encounter Time: 07:45 Subjective: feels better no seizures or new weakness has ambulated with PT yesterday - Objective Vital Signs & Weight: Vital Signs (12 hours) Temp Pulse Resp BP BP Pulse Ox 06/21/19 10:53 97.9 F 87 18 142/90 H 96 06/21/19 08:36 75 06/21/19 07:01 98.2 F 75 18 123/86 94 L 06/21/19 04:52 97.9 F 79 18 140/93 H 95 06/21/19 01:22 95 06/21/19 00:04 97.9 F 80 18 130/86 95 Weight Weight 205 lb 4.8 oz Most Recent Monitor Data Heart Rate from ECG 96 NIBP 129/102 NIBP BP-Mean 111 Respiration from ECG 22 SpO2 96 I&O: 06/20/19 06/21/19 06/22/19 06:59 06:59 06:59 Intake Total 2420 1020 Output Total 1050 1075 Balance 1370 -55 Result Diagrams: 06/20/19 03:56 06/20/19 03:56 Hospitalist ROS - Medication Medications: Active Medications Generic Name Dose Route Start Last Admin Trade Name Freq PRN Reason Stop Dose Admin Amlodipine Besylate 5 mg 06/17/19 09:00 06/21/19 08:36 Norvasc PO 5 mg DAILY COURTNEY Administration Apixaban 10 mg 06/17/19 21:00 06/21/19 08:36 Eliquis PO 10 mg BID COURTNEY Administration Clonidine 0.1 mg 06/17/19 01:12 06/17/19 01:22 Catapres PO 0.1 mg Q6H PRN Administration Hypertension Famotidine 20 mg 06/16/19 21:00 06/21/19 08:35 Pepcid PO 20 mg Q12HR COURTNEY Administration Lacosamide 200 mg 06/16/19 21:00 06/21/19 08:33 Vimpat PO 200 mg BID COURTNEY Administration Levetiracetam 2,000 mg 06/16/19 21:00 06/21/19 08:35 Keppra PO 2,000 mg BID COURTNEY Administration Oxcarbazepine 150 mg 06/16/19 21:00 06/21/19 08:31 Trileptal PO 150 mg BID COURTNEY Administration Zonisamide 200 mg 06/16/19 21:00 06/20/19 20:40 Zonisamide PO 200 mg HS COURTNEY Administration Zonisamide 300 mg 06/17/19 09:00 06/21/19 08:34 Zonisamide PO 300 mg QAM COURTNEY Administration - Exam General Appearance: awake alert Eye: PERRL, anicteric sclera ENT: no oropharyngeal lesions, moist mucosa Neck: supple, no JVD Heart: RRR, no murmur Respiratory: no wheezes, no rales Gastrointestinal: soft, non-tender, non-distended, normal bowel sounds Extremities: no cyanosis, no edema Neurological: hemiplegia Psychiatric: normal affect, A&O x 3 Hosp A/P (1) DVT (deep venous thrombosis) Code(s): I82.409 - ACUTE EMBOLISM AND THOMBOS UNSP DEEP VN UNSP LOWER EXTREMITY Status: Acute Qualifiers: DVT location: lower extremity Chronicity: acute Laterality: right (2) Pulmonary embolism Code(s): I26.99 - OTHER PULMONARY EMBOLISM WITHOUT ACUTE COR PULMONALE Status : Acute Qualifiers: Pulmonary embolism type: saddle Chronicity: acute Acute cor pulmonale presence: unspecified Qualified Code(s): I26.92 - Saddle embolus of pulmonary artery without acute cor pulmonale (3) Obesity Code(s): E66.9 - OBESITY, UNSPECIFIED Status: Chronic Qualifiers: Obesity classification: adult class 1 (BMI 30 - 34.9) Body mass index: BMI 33.0-33.9 (4) CVA (cerebral vascular accident) Code(s): I63.9 - CEREBRAL INFARCTION, UNSPECIFIED Status: Chronic Qualifiers: Laterality of affected vessel: left (5) Brain cancer Code(s): C71.9 - MALIGNANT NEOPLASM OF BRAIN, UNSPECIFIED Status: Chronic (6) Seizure disorder Code(s): G40.909 - EPILEPSY, UNSP, NOT INTRACTABLE, WITHOUT STATUS EPILEPTICUS Status: Chronic - Plan h/o astrocytoma/brain ca with attempted resection in 2010 at [facility], prior radiation and chemo developed right hemiparesis in 2010 recent hospitalization for suspected sz on right side (?focal per patient) at [facility] and was added a 4th seizure med on eliquis, norvasc, vimpat, keppra, trileptal and zonisamide her current neuro is and nsx is per patient eliquis 10mg bid till 15th then 5mg bid thereafter. awaiting rehab eval to go back, may dc anytime if she is approved.
--- NOTE | 2019-06-21 16:16 | PRG ---
DATE OF SERVICE: 06/21/2019 SUBJECTIVE: Ms. Cardenas is afebrile. OBJECTIVE: VITAL SIGNS: Heart rate 85, respiratory rate 16, oximetry is 96%, and blood pressure 137/88. LUNGS: Clear. HEART: Regular rhythm. ABDOMEN: Soft. She is still on room air. Apparently, there was some hold up getting her back into rehab because of her insurance, even though she had been approved already to be in rehab and came from rehab. I really cannot understand this. She is getting physical therapy while she is here. IMPRESSION: 1. Thromboembolic disease. 2. History of cerebrovascular accident. 3. History of brain tumor treated partially with surgery and partially with radiation therapy, clinically in remission per Dr. Allen's note. PLAN: Will be to follow up in 2 to 3 months in my office, but hopefully we can get her back into rehab. Job ID: [id number]
[2019-06-22 05:25] LABS: Hemoglobin 14.8 g/dL (12.0-16.0); Platelet Count 272 thou/uL (130-400)
[2019-06-22] MEDS: Zonisamide 100 MG CAP PO SCH (08:59)
[2019-06-22] MEDS: Apixaban 5 MG TAB PO SCH (08:59)
[2019-06-22] MEDS: Famotidine 20 MG TAB PO SCH (08:59)
[2019-06-22] MEDS: levETIRAcetam 500 MG TAB PO SCH (09:00)
[2019-06-22] MEDS: Amlodipine 5 MG TAB PO SCH (09:00)
[2019-06-22] MEDS: Lacosamide 50 mg Tablet PO SCH (09:01)
[2019-06-22] MEDS: OXcarbazepine 150 MG TAB PO SCH (09:01)
--- NOTE | 2019-06-22 12:07 | PRG ---
DATE OF SERVICE: 06/22/2019 SUBJECTIVE: Carly Cardenas continues to be afebrile. OBJECTIVE: VITAL SIGNS: Heart rate is in the 70s, respiratory rate is 18, oximetry 97% on room air, blood pressure 126/88. LUNGS: Clear. HEART: Regular rhythm. ABDOMEN: Soft. Overall, she appears to be stable. She says she is able to transfer now using a walker and get to a chair. LABORATORY DATA: Hemoglobin stable at 14.8, platelets are stable at 272. Creatinine is 1.05. IMPRESSION: 1. Subacute thromboembolic disease. 2. Recent cerebrovascular accident. 3. Status post apparent curative treatment for brain tumor almost 10 years ago. She is stable to go to rehab whenever a bed is available. Job ID: [id number]
--- NOTE | 2019-06-22 12:13 | PDOC.HOSPP ---
- Subjective Encounter Date: 06/22/19 Encounter Time: 08:40 Subjective: no new complaints is amb in room with walker - Objective Vital Signs & Weight: Vital Signs (12 hours) Temp Pulse Resp BP Pulse Ox 06/22/19 09:00 78 06/22/19 07:22 97.6 F 78 18 126/88 97 06/22/19 03:00 96 Weight Weight 205 lb 4.8 oz Most Recent Monitor Data Heart Rate from ECG 96 NIBP 129/102 NIBP BP-Mean 111 Respiration from ECG 22 SpO2 96 I&O: 06/21/19 06/22/19 06/23/19 06:59 06:59 06:59 Intake Total 1020 1530 Output Total 1075 650 Balance -55 880 Result Diagrams: 06/22/19 04:59 06/22/19 04:59 Hospitalist ROS - Medication Medications: Active Medications Generic Name Dose Route Start Last Admin Trade Name Freq PRN Reason Stop Dose Admin Amlodipine Besylate 5 mg 06/17/19 09:00 06/22/19 09:00 Norvasc PO 5 mg DAILY COURTNEY Administration Apixaban 10 mg 06/17/19 21:00 06/22/19 08:59 Eliquis PO 10 mg BID COURTNEY Administration Clonidine 0.1 mg 06/17/19 01:12 06/17/19 01:22 Catapres PO 0.1 mg Q6H PRN Administration Hypertension Famotidine 20 mg 06/16/19 21:00 06/22/19 08:59 Pepcid PO 20 mg Q12HR COURTNEY Administration Lacosamide 200 mg 06/16/19 21:00 06/22/19 09:01 Vimpat PO 200 mg BID COURTNEY Administration Levetiracetam 2,000 mg 06/16/19 21:00 06/22/19 09:00 Keppra PO 2,000 mg BID COURTNEY Administration Oxcarbazepine 150 mg 06/16/19 21:00 06/22/19 09:01 Trileptal PO 150 mg BID COURTNEY Administration Zonisamide 200 mg 06/16/19 21:00 06/21/19 20:42 Zonisamide PO 200 mg HS COURTNEY Administration Zonisamide 300 mg 06/17/19 09:00 06/22/19 08:59 Zonisamide PO 300 mg QAM COURTNEY Administration - Exam General Appearance: awake alert Eye: PERRL, anicteric sclera ENT: no oropharyngeal lesions, moist mucosa Neck: supple, no JVD Heart: RRR, no murmur Respiratory: no wheezes, no rales Gastrointestinal: soft, non-tender, non-distended, normal bowel sounds Extremities: no cyanosis, no edema Neurological: hemiplegia Psychiatric: normal affect, A&O x 3 Hosp A/P (1) DVT (deep venous thrombosis) Code(s): I82.409 - ACUTE EMBOLISM AND THOMBOS UNSP DEEP VN UNSP LOWER EXTREMITY Status: Acute Qualifiers: DVT location: lower extremity Chronicity: acute Laterality: right (2) Pulmonary embolism Code(s): I26.99 - OTHER PULMONARY EMBOLISM WITHOUT ACUTE COR PULMONALE Status : Acute Qualifiers: Pulmonary embolism type: saddle Chronicity: acute Acute cor pulmonale presence: unspecified Qualified Code(s): I26.92 - Saddle embolus of pulmonary artery without acute cor pulmonale (3) Obesity Code(s): E66.9 - OBESITY, UNSPECIFIED Status: Chronic Qualifiers: Obesity classification: adult class 1 (BMI 30 - 34.9) Body mass index: BMI 33.0-33.9 (4) CVA (cerebral vascular accident) Code(s): I63.9 - CEREBRAL INFARCTION, UNSPECIFIED Status: Chronic Qualifiers: Laterality of affected vessel: left (5) Brain cancer Code(s): C71.9 - MALIGNANT NEOPLASM OF BRAIN, UNSPECIFIED Status: Chronic (6) Seizure disorder Code(s): G40.909 - EPILEPSY, UNSP, NOT INTRACTABLE, WITHOUT STATUS EPILEPTICUS Status: Chronic - Plan h/o astrocytoma/brain ca with attempted resection in 2010 at [facility], prior radiation and chemo developed right hemiparesis in 2010 recent hospitalization for suspected sz on right side (?focal per patient) at [facility] and was added a 4th seizure med on eliquis, norvasc, vimpat, keppra, trileptal and zonisamide her current neuro is and nsx is per patient eliquis 10mg bid till 15th then 5mg bid thereafter. awaiting rehab eval to go back, may dc anytime if she is approved.
[2019-06-22 16:37] LABS: Activated Protein C Resistance 2.9 ratio (.)
--- NOTE | 2019-06-22 17:48 | DIS ---
DATE OF ADMISSION: 06/15/2019 DATE OF DISCHARGE: 06/22/2019 DISCHARGE DISPOSITION: Inpatient rehab. PRIMARY DISCHARGE DIAGNOSIS: Pulmonary embolism with right lower extremity deep vein thrombosis. SECONDARY DISCHARGE DIAGNOSES: 1. History of prior cerebrovascular accident with left hemiparesis. 2. History of brain tumor with attempted resection in 2010 with development of right hemiparesis and seizure disorder secondary to it. 3. Obesity. PROCEDURES DONE DURING HOSPITALIZATION: Chest x-ray done on the day of admission showed no acute cardiopulmonary process. The patient had CT angio done on the day of admission which showed extensive bilateral pulmonary emboli. A large saddle embolus in the right main pulmonary artery was producing occlusion of the right main pulmonary artery trunk and extending into right lower lobe pulmonary arteries. Emboli were also seen in bilateral upper lobe and lower lobe pulmonary arteries. Echo with 2D Doppler showed an ejection fraction of 60% to 65%, moderately enlarged RV cavity, abnormal septal motion was seen, moderate to severe tricuspid regurgitation was seen. Ultrasound venous Doppler done on the day of admission showed partial thrombus in the right lower extremity deep venous system involving the popliteal vein extending into the posterior tibial vein. H and H 14 and 42, platelet count 272 on the day of discharge. BUN and creatinine were 13 and 0.9 on the . Discharge creatinine is 1.0. DISCHARGE MEDICATIONS: 1. Eliquis 10 mg twice daily until the , then 5 mg p.o. twice daily thereafter. 2. Aspirin 81 mg p.o. daily. 3. Lipitor 40 mg p.o. at bedtime. 4. Clonazepam 0.5 mg p.o. twice daily p.r.n. 5. Vimpat 200 mg twice daily. 6. Keppra 2000 mg p.o. twice daily. 7. Trileptal 150 mg twice daily. 8. Zonisamide 300 mg p.o. q.a.m. and 200 mg p.o. at bedtime. 9. Norvasc 5 mg p.o. daily. 10. Losartan 50 mg p.o. daily. ALLERGIES: NO KNOWN DRUG ALLERGIES. INPATIENT CONSULT: Dr. Donohue for Pulmonology. BRIEF COURSE DURING HOSPITALIZATION: The patient initially got admitted on the 6th after she was sent over from rehab for bilateral pulmonary embolus with large clot burden. She was also found to have had right lower extremity DVT. The patient was initially admitted to ICU and later downgraded to medical floor. She was placed on Lovenox and has been transitioned to Eliquis. She remained seizure-free. Prior to discharge, she is ambulating in the room with a rolling walker. She has remained hemodynamically stable. She has been cleared by Dr. Donohue for discharge. The patient needs to continue further PT, OT, and recuperation at the inpatient rehab facility. Her discharge was delayed due to insurance approval to go back to rehab. She has been approved to go back today and will be shortly discharged. A total of 35 minutes was spent on discharge plan. Please see a [id number] documentation for the day of discharge on [email or web address]. The patient has been advised to follow up with her oncologist and her neurosurgeon in 4 to 6 weeks. Job ID: [id number]
[2019-06-22 18:59] VITALS: BP 127/87; TEMP 97.7
== END 2019-06-22 19:19 | DRG 176 ==
LOC: ERS 15:07 → CCU 17:51 → 2NO 06-17 10:57 → T4-B 06-20 14:26
PROVIDERS: ADMIT Internal Medicine; ATTEND Internal Medicine
DX: I26.92 Saddle embolus of pulmonary artery without acute cor pulmonale (principal); C71.9 Malignant neoplasm of brain, unspecified; I82.431 Acute embolism and thrombosis of right popliteal vein; I82.441 Acute embolism and thrombosis of right tibial vein; G81.91 Hemiplegia, unspecified affecting right dominant side; G40.909 Epilepsy, unspecified, not intractable, without status epilepticus; I07.1 Rheumatic tricuspid insufficiency; E66.9 Obesity, unspecified; Z68.33 Body mass index [BMI] 33.0-33.9, adult; Z86.73 Personal history of transient ischemic attack (TIA), and cerebral infarction without residual deficits
CPT/HCPCS: 36415; 71045; 80048; 81240; 81241; 82553; 82565; 83090; 83880; 84484; 85014; 85018; 85025; 85049; 85240; 85300; 85303; 85305; 85307; 85379; 85598; 85610; 85730; 86147; 93005; 93306; 94760; 96372; J1650; S0028

== ENCOUNTER 2019-07-10 15:31 | Outpatient (CLI) | payer BC ==
--- NOTE | 2019-07-10 16:14 | RAD ---
RIGHT CLAVICLE TWO VIEWS: 07/10/19 HISTORY: Pain. Fall. FINDINGS: Displaced mid clavicle fracture. Associated deformity. IMPRESSION: Mid clavicle fracture. POS: PPP
== END 2019-07-10 15:32 | disposition home or self-care (01) ==
LOC: BICRAD 15:31
PROVIDERS: ATTEND Family Medicine
DX: M89.8X1 Other specified disorders of bone, shoulder (principal); S42.011A Anterior displaced fracture of sternal end of right clavicle, initial encounter for closed fracture

== ENCOUNTER 2019-09-24 05:36 | Outpatient (CLI) | payer BC, OTHER ==
[2019-09-24 11:11] LABS: Hemoglobin 14.5 g/dL (12.0-16.0); Mean Corpuscular HGB CONC 34.1 g/dL (32.0-36.0); Mean Corpuscular Hemoglobin 33.5 pg (27.0-31.0); Mean Corpuscular Volume 98.1 fL (78.0-98.0); Mean Platelet Volume 8.6 fL (7.4-10.4); Platelet Count 298 thou/uL (130-400); RBC Distribution Width 11.9 % (11.5-14.5); Red Blood Cell (RBC) Count 4.34 mill/uL (4.20-5.40); White Blood Cell (WBC) Count 8.6 thou/uL (4.8-10.8)
[2019-09-24 11:25] LABS: BHCG - Serum Negative (NEGATIVE); Pregs Control Background? CLEAR/WHITE (CLR/WHITE); Pregs Control Bar Appear? YES (CONTROL BAR)
[2019-09-25 12:47] LABS: SARS-CoV-2 MS2 Positive; SARS-CoV-2 N Gene Negative; SARS-CoV-2 S Gene Negative; SARS-CoV-2 orf1ab Negative
== END 2019-09-24 05:37 | disposition home or self-care (01) ==
LOC: LABBT 05:36
PROVIDERS: ATTEND Orthopaedic Surgery
DX: Z01.812 Encounter for preprocedural laboratory examination (principal); Z11.59 Encounter for screening for other viral diseases; S42.001A Fracture of unspecified part of right clavicle, initial encounter for closed fracture
CPT/HCPCS: 84703; 85027; 87635; U0003

== ENCOUNTER 2019-09-29 09:55 | Day surgery (SDC) | payer BC ==
[2019-09-22 15:20] VITALS: BMI 34.7
[2019-09-29] MEDS ORDERED: Famotidine/PF 20 mg/2ml Vial ONE (11:05)
[2019-09-29] MEDS ORDERED: Ondansetron PF 4 MG/2 ML Vial ONE ×2 (11:05→13:44)
[2019-09-29] MEDS ORDERED: Scopolamine 1.5 mg/72 hour Patch ONE (11:06)
[2019-09-29] MEDS ORDERED: Midazolam HCl 2 mg/2 ml Vial ONE (11:58)
[2019-09-29] MEDS ORDERED: Fentanyl 100 MCG/2 ML VIAL ONE ×2 (11:59)
--- NOTE | 2019-09-29 13:37 | RAD ---
Radiograph right clavicle 2 views: 09/29/2019 COMPARISON: 09/14/2019 FINDINGS: Fluoroscopic spot images from C-[facility]. The previously demonstrated very displaced mid diaphyseal fractu re has been reduced, now with anatomical alignment. It has been fixated with a long metallic plate with multiple screws. IMPRESSION: Status post open reduction internal fixation of traumatic, severely displaced midclavicular shaft fra cture, now with anatomical alignment.
[2019-09-29] MEDS ORDERED: Succinylcholine Chloride 20 MG/ML 10 ml SYRINGE FS ONE (13:44)
[2019-09-29] MEDS ORDERED: Dexamethasone 20 MG/5 ML VIAL ONE (13:44)
[2019-09-29] MEDS ORDERED: Lidocaine 1% PF 5 ML VIAL ONE (13:44)
[2019-09-29] MEDS ORDERED: PROPOFOL 200 MG/20 ML VIAL ONE (13:44)
[2019-09-29] MEDS ORDERED: Rocuronium Bromide 10 MG/ML (10ML VIAL) ONE (13:44)
--- NOTE | 2019-09-29 14:28 | OP ---
DATE OF PROCEDURE: 09/29/2019 OPERATION PERFORMED: Open reduction and internal fixation of right clavicle nonunion. PREOPERATIVE DIAGNOSIS: Nonunion of right midshaft clavicle fracture. POSTOPERATIVE DIAGNOSIS: Nonunion of right midshaft clavicle fracture. COMPLICATIONS: None. ESTIMATED BLOOD LOSS: 150 mL. DIRECTOR OF STUDENT AFFAIRS: Rojelio Zuniga PA-C IMPLANT: Synthes superior clavicle plate with multiple locking and nonlocking screws were utilized. INDICATIONS: Ms. Cardenas is a 33-year-old female who has fractured her clavicle. We attempted nonoperative treatment; however, she went on to nonunion. She has a symptomatic nonunion and has elected to proceed with open reduction and internal fixation. She is aware of risks and benefits. She is off her blood thinners temporarily for surgery. She does have a history of CVA and seizures. DESCRIPTION OF PROCEDURE: Ms. Cardenas was identified in the preoperative holding area. Her correct extremity was marked. She was carried to the operating room. She was positioned supine. General anesthesia was induced. A multidisciplinary time-out was performed. The right upper extremity was prepped and draped in sterile fashion. We began the procedure with an incision over the clavicle. We dissected down through the subcutaneous tissues to the platysma, which was incised. We protected neurological structures. We then exposed the underlying clavicle fracture, which was superiorly displaced. There was a very little callus formation. We cleared the bony edges of scar tissue. We then reduced the fracture back into an anatomic position using a reduction clamp. We then applied a superior clavicle plate. Six screws were placed, these were locking and nonlocking screws. We obtained good fixation. We took x-ray images, confirming placement was appropriate. We then thoroughly irrigated with copious lavage and closed appropriately in layers. A sterile dressing was applied. The patient was taken to the recovery room in good condition. Job ID: [id number]
[2019-09-29] MEDS ORDERED: HYDROcodone/Acetaminophen 5/325 mg Tablet ONE (15:40)
== END 2019-09-29 16:13 | disposition home or self-care (01) ==
LOC: SDC 09:55
PROVIDERS: ATTEND Orthopaedic Surgery
PROC: 0PS904Z Reposition Right Clavicle with Internal Fixation Device, Open Approach (ICD-10-PCS; principal; 2019-09-29)
DX: S42.021A Displaced fracture of shaft of right clavicle, initial encounter for closed fracture (principal); I10 Essential (primary) hypertension; Z79.01 Long term (current) use of anticoagulants; Z79.82 Long term (current) use of aspirin; Z79.899 Other long term (current) drug therapy
CPT/HCPCS: 76000; 93005; 93010; C1713; J0690; J1100; J2250; J2405; J2704; J3010; S0028

== ENCOUNTER 2022-09-13 11:37 | Outpatient (CLI) | payer BC ==
[2022-09-13 12:48] LABS: Hemoglobin 14.5 g/dL (12.0-15.5); Mean Corpuscular Hemoglobin 32.4 pg (27.0-33.0); Mean Corpuscular Volume 98.2 fl (81.6-98.3); Mean Platelet Volume 10.2 fl (7.4-10.4); Platelet Count 333 10x3/uL (150-450); RBC Distribution Width 12.4 % (11.5-14.5); Red Blood Cell (RBC) Count 4.48 10x6/uL (3.90-5.03); White Blood Cell (WBC) Count 8.9 10x3/uL (3.5-10.5)
[2022-09-13 12:59] LABS: Bilirubin Neg (Negative); Blood, Urine 250 (Negative); Glucose, Urine (Dipstick) 50 mg/dL (Negative); Ketone, Urine Negative (Negative); Leukocyte 100 (Negative); Nitrite Positive (Negative); Protein, Urine (Dipstick) 500 mg/dl (Neg-Trace); Urobilinogen Normal mg/dL (Less than 2)
[2022-09-13 13:00] LABS: Clarity Cloudy (Clear)
[2022-09-13 13:05] LABS: Bacteria/HPF 1+ HPF (None Seen); RBC/HPF Greater than 50 HPF (0-3)
[2022-09-13 13:10] LABS: PTT 28.5 sec (22.0-33.0); Prothrombin Time 11.2 sec (9.5-12.1)
[2022-09-13 13:23] LABS: BHCG - Serum Negative (NEGATIVE); Pregs Control Background? CLEAR/WHITE (CLR/WHITE); Pregs Control Bar Appear? YES (CONTROL BAR)
[2022-09-13 13:37] LABS: Anion Gap 14 mmol/L (10-20); BUN (Urea Nitrogen) 19 mg/dL (7.0-18.7); Calc. Creatinine Clearance 0 mL/min (70-130); Calcium 9.4 mg/dL (7.8-10.44); Carbon Dioxide 20 mmol/L (22-29); Chloride 109 mmol/L (98-107); Estimated GFR 52; Glucose 99 mg/dL (70-105); Potassium 3.9 mmol/L (3.5-5.1); Sodium 139 mmol/L (136-145)
== END 2022-09-13 11:38 | disposition home or self-care (01) ==
LOC: LABBT 11:37
PROVIDERS: ATTEND Urology
DX: Z01.818 Encounter for other preprocedural examination (principal); N20.1 Calculus of ureter
CPT/HCPCS: 80048; 81001; 84703; 85027; 85610; 85730; 87086; 93005; 93010

== ENCOUNTER 2023-01-02 16:35 | Observation (INO) | payer BC ==
[2023-01-02 17:09] LABS: #Monocytes 0.4 thou/uL (0.11-0.59); #Neutrophils 6.3 thou/uL (1.40-6.50); %Basophils 0.2 % (0.0-1.0); %Eosinophils 0.5 % (0.0-10.0); %Lymphocytes 21.1 % (21.0-51.0); %Monocytes 4.9 % (0.0-10.0); %Neutrophils 73.2 % (42.0-75.0); Hematocrit 42.7 % (36.0-47.0); Hemoglobin 13.9 g/dL (12.0-16.0); Mean Corpuscular HGB CONC 32.6 g/dL (32.0-36.0); Mean Corpuscular Hemoglobin 31.8 pg (27.0-31.0); Mean Corpuscular Volume 97.7 fl (78.0-98.0); Mean Platelet Volume 10.4 fL (7.4-10.4); Platelet Count 306 10x3/uL (130-400); RBC Distribution Width 12.7 % (11.5-14.5); Red Blood Cell (RBC) Count 4.37 mill/uL (4.20-5.40); White Blood Cell (WBC) Count 8.6 10x3/uL (4.8-10.8)
[2023-01-02 17:28] LABS: INR-International Normal Ratio 1.1; Prothrombin Time 14.4 sec (12.0-14.7)
[2023-01-02 17:49] LABS: Troponin I Less than 0.010 ng/mL (< 0.028)
[2023-01-02 17:50] LABS: ALT (SGPT) 10 U/L (8-55); AST (SGOT) 13 U/L (5-34); Albumin 4.8 g/dL (3.5-5.0); Alkaline Phosphatase 113 U/L (40-110); Anion Gap 15 mmol/L (10-20); BUN (Urea Nitrogen) 12 mg/dL (7.0-18.7); Bilirubin, Total 0.3 mg/dL (0.2-1.2); Calc. Creatinine Clearance 0 mL/min (70-130); Calcium 9.7 mg/dL (7.8-10.44); Carbon Dioxide 21 mmol/L (22-29); Chloride 109 mmol/L (98-107); Estimated GFR 58; Globulin 3.3 g/dL (2.4-3.5); Glucose 126 mg/dL (70-105); Potassium 3.4 mmol/L (3.5-5.1); Protein, Total 8.1 g/dL (6.0-8.3); Sodium 142 mmol/L (136-145)
[2023-01-02 19:14] LABS: Bacteria/HPF 2+ HPF (None Seen); Bilirubin Negative (Negative); Blood, Urine 1+ (Negative); CAUTI Indications for Culture Dysuria,urgency,freq; Clarity Extra Turbid (Clear); Glucose, Urine (Dipstick) Normal (Negative); Ketone, Urine Negative (Negative); Leukocyte 500 Leu/uL (Negative); Nitrite Negative (Negative); Pregnancy Test - Urine (BHCG) Negative (Negative); Pregu Control Background? CLEAR/WHITE (CLR/WHITE); Pregu Control Bar Appear? YES (CONTROL BAR); Protein, Urine (Dipstick) 20 mg/dL (Neg-Trace); RBC/HPF 0-3 HPF (0-3); Specific Gravity 1.013 (1.002-1.036); Specific Gravity, Urine 1.013 (1.002-1.036); Urobilinogen Normal mg/dL (Less than 2); pH, Urine 7.5 (5.0-9.0)
[2023-01-02 19:15] LABS: Urine Culture Reflex No No
[2023-01-02 19:18] LABS: Amphetamine Not Detected (NotDetected); Barbiturates Screen Not Detected (NotDetected); Benzodiazepine Screen Not Detected (NotDetected); Cocaine Metabolite Screen Not Detected (NotDetected); Methadone Not Detected (NotDetected); Methamphetamine Not Detected (NotDetected); Opiate Screen Not Detected (NotDetected); Oxycodone Screen Not Detected (NotDetected); Phencyclidine (PCP) Not Detected (NotDetected); THC/Cannabinoid Screen Not Detected (NotDetected); Tricyclic Screen Not Detected (NotDetected)
[2023-01-02] MEDS ORDERED: Labetalol HCl 100 MG/20 ML VIAL SLOW IVP PRN (20:32)
[2023-01-02] MEDS ORDERED: Acetaminophen 325 MG TAB PO PRN ×2 (20:32→20:45)
[2023-01-02] MEDS ORDERED: hydrALAZINE 20 MG/ML VIAL SLOW IVP PRN (20:32)
[2023-01-02] MEDS ORDERED: Ondansetron PF 4 MG/2 ML Vial IVP PRN ×2 (20:32→20:45)
[2023-01-02] MEDS ORDERED: Ondansetron ODT 4 MG TAB SL PRN (20:45)
[2023-01-02] MEDS ORDERED: LEVETIRACETAM 1000 MG PO SCH (21:00)
[2023-01-02] MEDS ORDERED: Atorvastatin Calcium 40 MG TAB PO SCH (21:00)
[2023-01-02] MEDS ORDERED: Divalproex Sodium DR 500 MG TAB PO SCH (21:00)
[2023-01-02 21:15] LABS: Magnesium 2.1 mg/dL (1.6-2.6)
[2023-01-02] MEDS ORDERED: Potassium Bicarbonate/Cit Ac 20 MEQ TAB PO SCH (21:30)
[2023-01-02] MEDS ORDERED: Lorazepam 2 MG/ML VIAL SLOW IVP PRN (22:39)
[2023-01-03] MEDS: Lacosamide 50 mg Tablet PO SCH ×4 (00:01→15:25)
[2023-01-03] MEDS ORDERED: levETIRAcetam 500 MG TAB PO SCH ×3 (00:30→21:00)
[2023-01-03 00:41] VITALS: BMI 33.2
[2023-01-03 05:33] LABS: #Eosinphils 0.1 thou/uL (0.0-0.7); #Monocytes 0.6 thou/uL (0.11-0.59); #Neutrophils 3.7 thou/uL (1.40-6.50); %Basophils 0.4 % (0.0-1.0); %Eosinophils 0.7 % (0.0-10.0); %Lymphocytes 40.5 % (21.0-51.0); %Monocytes 7.6 % (0.0-10.0); %Neutrophils 50.7 % (42.0-75.0); Hematocrit 38.9 % (36.0-47.0); Hemoglobin 12.7 g/dL (12.0-16.0); Mean Corpuscular HGB CONC 32.6 g/dL (32.0-36.0); Mean Corpuscular Hemoglobin 32.1 pg (27.0-31.0); Mean Corpuscular Volume 98.2 fl (78.0-98.0); Mean Platelet Volume 10.6 fL (7.4-10.4); Platelet Count 253 10x3/uL (130-400); RBC Distribution Width 12.7 % (11.5-14.5); Red Blood Cell (RBC) Count 3.96 mill/uL (4.20-5.40); White Blood Cell (WBC) Count 7.2 10x3/uL (4.8-10.8)
[2023-01-03 05:42] LABS: Hemoglobin A1c 5.3 % (4.0-6.0)
[2023-01-03 06:01] LABS: Anion Gap 11 mmol/L (10-20); BUN (Urea Nitrogen) 12 mg/dL (7.0-18.7); Calc. Creatinine Clearance 109 mL/min (70-130); Calcium 9.1 mg/dL (7.8-10.44); Carbon Dioxide 22 mmol/L (22-29); Cardiac Risk 2.2 (Less than 4.5); Chloride 111 mmol/L (98-107); Cholesterol 113 mg/dl (< 200 Desired); Estimated GFR 71; Glucose 96 mg/dL (70-105); HDL Cholesterol 51 mg/dL (>60 Neg Risk); LDL Cholesterol, Calculated 48 mg/dL; Magnesium 2.1 mg/dL (1.6-2.6); Potassium 3.8 mmol/L (3.5-5.1); Sodium 140 mmol/L (136-145); Triglycerides 72 mg/dL (Less than 150)
[2023-01-03] MEDS ORDERED: Zonisamide 100 MG CAP PO SCH (09:00)
[2023-01-03] MEDS ORDERED: Aspirin 81 mg Enteric Coated Tablet PO SCH (09:00)
[2023-01-03 16:10] VITALS: BP 120/83; TEMP 97.2
== END 2023-01-03 17:17 | disposition home or self-care (01) ==
LOC: ERS 16:35 → 2SE 20:47
PROVIDERS: ADMIT Internal Medicine; ATTEND Internal Medicine
DX: H53.8 Other visual disturbances (principal); I10 Essential (primary) hypertension; E78.5 Hyperlipidemia, unspecified; G40.909 Epilepsy, unspecified, not intractable, without status epilepticus; J81.0 Acute pulmonary edema; C71.9 Malignant neoplasm of brain, unspecified; G45.9 Transient cerebral ischemic attack, unspecified; J81.1 Chronic pulmonary edema; N18.2 Chronic kidney disease, stage 2 (mild); R11.2 Nausea with vomiting, unspecified; Z88.8 Allergy status to other drugs, medicaments and biological substances; Z79.82 Long term (current) use of aspirin; Z79.01 Long term (current) use of anticoagulants; Z79.899 Other long term (current) drug therapy; Z86.73 Personal history of transient ischemic attack (TIA), and cerebral infarction without residual deficits; Z86.718 Personal history of other venous thrombosis and embolism
CPT/HCPCS: 36415; 70450; 70551; 71045; 80048; 80053; 80061; 80306; 81001; 81025; 83036; 83735; 83880; 84484; 85025; 85610; 87086; 93005; 93306; 96372; G0378; J1650

== ENCOUNTER 2023-01-07 11:08 | Emergency (ER) | payer BC ==
[2023-01-07 12:21] LABS: #Monocytes 0.6 thou/uL (0.11-0.59); #Neutrophils 8.1 thou/uL (1.40-6.50); %Basophils 0.2 % (0.0-1.0); %Eosinophils 0.2 % (0.0-10.0); %Lymphocytes 15.1 % (21.0-51.0); %Monocytes 6.1 % (0.0-10.0); %Neutrophils 77.9 % (42.0-75.0); Hematocrit 45.2 % (36.0-47.0); Hemoglobin 14.8 g/dL (12.0-16.0); Mean Corpuscular HGB CONC 32.7 g/dL (32.0-36.0); Mean Corpuscular Hemoglobin 31.9 pg (27.0-31.0); Mean Corpuscular Volume 97.4 fl (78.0-98.0); Mean Platelet Volume 9.9 fL (7.4-10.4); Platelet Count 302 10x3/uL (130-400); RBC Distribution Width 12.5 % (11.5-14.5); Red Blood Cell (RBC) Count 4.64 mill/uL (4.20-5.40); White Blood Cell (WBC) Count 10.4 10x3/uL (4.8-10.8)
[2023-01-07 12:41] LABS: BHCG - Serum Negative (NEGATIVE); Pregs Control Background? CLEAR/WHITE (CLR/WHITE); Pregs Control Bar Appear? YES (CONTROL BAR)
[2023-01-07 12:45] LABS: ALT (SGPT) 11 U/L (8-55); AST (SGOT) 13 U/L (5-34); Albumin 4.8 g/dL (3.5-5.0); Alkaline Phosphatase 110 U/L (40-110); Anion Gap 14 mmol/L (10-20); BUN (Urea Nitrogen) 14 mg/dL (7.0-18.7); Bilirubin, Total 0.4 mg/dL (0.2-1.2); Calc. Creatinine Clearance 0 mL/min (70-130); Calcium 9.5 mg/dL (7.8-10.44); Carbon Dioxide 20 mmol/L (22-29); Chloride 109 mmol/L (98-107); Estimated GFR 53; Globulin 2.8 g/dL (2.4-3.5); Glucose 119 mg/dL (70-105); Potassium 3.4 mmol/L (3.5-5.1); Protein, Total 7.6 g/dL (6.0-8.3); Sodium 140 mmol/L (136-145)
[2023-01-07 12:49] LABS: Troponin I Less than 0.010 ng/mL (< 0.028)
[2023-01-07] MEDS ORDERED: SODIUM CHLORIDE IVPB SCH (14:00)
[2023-01-07] MEDS ORDERED: LACOSAMIDE IVPB SCH (14:00)
[2023-01-07] MEDS ORDERED: ADMIXTURE FEE IVPB SCH (14:00)
[2023-01-07 14:24] LABS: Bacteria/HPF None Seen HPF (None Seen); Bilirubin Negative (Negative); Blood, Urine Negative (Negative); CAUTI Indications for Culture Alt mental st,lethar; Clarity Clear (Clear); Glucose, Urine (Dipstick) Normal (Negative); Ketone, Urine 10 mg/dL (Negative); Leukocyte Negative Leu/uL (Negative); Mucous/LPF Rare LPF (<2+); Nitrite Negative (Negative); Protein, Urine (Dipstick) 10 mg/dL (Neg-Trace); RBC/HPF 0-3 HPF (0-3); Specific Gravity, Urine 1.028 (1.002-1.036); Urobilinogen Normal mg/dL (Less than 2); WBC/HPF 0-3 HPF (0-3)
[2023-01-07 14:26] LABS: Pregnancy Test - Urine (BHCG) Negative (Negative); Pregu Control Background? CLEAR/WHITE (CLR/WHITE); Pregu Control Bar Appear? YES (CONTROL BAR); Specific Gravity 1.028 (1.002-1.036); Urine Culture Reflex No No
[2023-01-07] MEDS ORDERED: LORazepam 2 MG/ML SYR.(CARPUJECT) ONE (15:40)
== END 2023-01-07 17:03 | disposition short-term general hospital (02) ==
LOC: ERS 11:08
DX: G40.909 Epilepsy, unspecified, not intractable, without status epilepticus (principal); R41.82 Altered mental status, unspecified; I10 Essential (primary) hypertension; Z79.01 Long term (current) use of anticoagulants; Z79.899 Other long term (current) drug therapy; Z79.82 Long term (current) use of aspirin
CPT/HCPCS: 36415; 51701; 70450; 71045; 80053; 81001; 81025; 83735; 84146; 84484; 84703; 85025; 93005; 96361; 96365; 96375; C9254; J2060; J3490

== ENCOUNTER 2023-01-24 14:25 | Emergency (ER) | payer BC ==
[2023-01-24] MEDS ORDERED: Metoclopramide HCl 10 MG/2 ML VIAL ONE (15:16)
[2023-01-24] MEDS ORDERED: diphenhydrAMINE 50 MG/ML VIAL ONE (15:16)
[2023-01-24 15:40] LABS: #Monocytes 0.6 thou/uL (0.11-0.59); #Neutrophils 8.5 thou/uL (1.40-6.50); %Basophils 0.3 % (0.0-1.0); %Monocytes 5.5 % (0.0-10.0); %Neutrophils 79.8 % (42.0-75.0); Hematocrit 43.1 % (36.0-47.0); Hemoglobin 14.2 g/dL (12.0-16.0); Mean Corpuscular HGB CONC 32.9 g/dL (32.0-36.0); Mean Corpuscular Hemoglobin 32.6 pg (27.0-31.0); Mean Corpuscular Volume 98.9 fl (78.0-98.0); Mean Platelet Volume 10.2 fL (7.4-10.4); Platelet Count 244 10x3/uL (130-400); Red Blood Cell (RBC) Count 4.36 mill/uL (4.20-5.40); White Blood Cell (WBC) Count 10.6 10x3/uL (4.8-10.8)
[2023-01-24 15:50] LABS: BHCG - Serum Negative (NEGATIVE); Pregs Control Background? CLEAR/WHITE (CLR/WHITE); Pregs Control Bar Appear? YES (CONTROL BAR)
[2023-01-24 16:01] LABS: ALT (SGPT) 9 U/L (8-55); AST (SGOT) 14 U/L (5-34); Albumin 4.5 g/dL (3.5-5.0); Alkaline Phosphatase 99 U/L (40-110); Anion Gap 15 mmol/L (10-20); BUN (Urea Nitrogen) 12 mg/dL (7.0-18.7); Bilirubin, Total 0.6 mg/dL (0.2-1.2); Calc. Creatinine Clearance 0 mL/min (70-130); Calcium 8.9 mg/dL (7.8-10.44); Carbon Dioxide 15 mmol/L (22-29); Chloride 114 mmol/L (98-107); Estimated GFR 70; Globulin 2.7 g/dL (2.4-3.5); Glucose 100 mg/dL (70-105); Lipase 29 U/L (8-78); Potassium 4.2 mmol/L (3.5-5.1); Protein, Total 7.2 g/dL (6.0-8.3); Sodium 140 mmol/L (136-145)
[2023-01-24 16:05] LABS: Troponin I Less than 0.010 ng/mL (< 0.028)
[2023-01-24 16:43] LABS: SARS-CoV-2 NAA Rapid Test Not Detected (NotDetected)
== END 2023-01-24 19:52 | disposition home or self-care (01) ==
LOC: ERS 14:25
DX: E86.0 Dehydration (principal); R11.10 Vomiting, unspecified; I10 Essential (primary) hypertension; Z20.822 Contact with and (suspected) exposure to COVID-19
CPT/HCPCS: 36415; 80053; 83690; 84484; 84703; 85025; 93005; 96361; 96365; 96375; J1200; J2765

== ENCOUNTER 2023-02-03 15:00 | Emergency (ER) | payer BC ==
[2023-02-03] MEDS ORDERED: Ondansetron PF 4 MG/2 ML Vial ONE (15:16)
[2023-02-03] MEDS ORDERED: levETIRAcetam 500 MG/5 ML VIAL ONE (15:34)
[2023-02-03] MEDS ORDERED: Metoclopramide HCl 10 MG/2 ML VIAL ONE (15:43)
[2023-02-03 15:48] LABS: #Monocytes 0.4 thou/uL (0.11-0.59); #Neutrophils 11.7 thou/uL (1.40-6.50); %Basophils 0.2 % (0.0-1.0); %Eosinophils 0.1 % (0.0-10.0); %Lymphocytes 6.3 % (21.0-51.0); %Monocytes 2.8 % (0.0-10.0); %Neutrophils 90.1 % (42.0-75.0); Hematocrit 42.4 % (36.0-47.0); Mean Corpuscular Volume 96.8 fl (78.0-98.0); Mean Platelet Volume 10.4 fL (7.4-10.4); Platelet Count 237 10x3/uL (130-400); RBC Distribution Width 13.2 % (11.5-14.5); Red Blood Cell (RBC) Count 4.38 mill/uL (4.20-5.40)
[2023-02-03 16:16] LABS: ALT (SGPT) 11 U/L (8-55); AST (SGOT) 11 U/L (5-34); Albumin 4.2 g/dL (3.5-5.0); Alkaline Phosphatase 93 U/L (40-110); Anion Gap 14 mmol/L (10-20); BUN (Urea Nitrogen) 13 mg/dL (7.0-18.7); Bilirubin, Total 0.4 mg/dL (0.2-1.2); Calc. Creatinine Clearance 0 mL/min (70-130); Calcium 9.1 mg/dL (7.8-10.44); Carbon Dioxide 19 mmol/L (22-29); Chloride 112 mmol/L (98-107); Estimated GFR 65; Globulin 2.8 g/dL (2.4-3.5); Glucose 110 mg/dL (70-105); Lipase 41 U/L (8-78); Potassium 3.6 mmol/L (3.5-5.1); Sodium 141 mmol/L (136-145)
[2023-02-03 16:20] LABS: Troponin I Less than 0.010 ng/mL (< 0.028)
== END 2023-02-03 18:21 | disposition home or self-care (01) ==
LOC: ERS 15:00
DX: R56.9 Unspecified convulsions (principal); R11.2 Nausea with vomiting, unspecified; I10 Essential (primary) hypertension; Z79.899 Other long term (current) drug therapy
CPT/HCPCS: 36415; 71045; 80053; 83690; 84484; 85025; 96361; 96365; 96375; J1953; J2405; J2765

== ENCOUNTER 2023-02-04 09:12 | Emergency (ER) | payer BC ==
[2023-02-04] MEDS ORDERED: Promethazine HCl 25 MG SUPP ONE (10:44)
[2023-02-04] MEDS ORDERED: Promethazine HCl 25 MG in Sodium Chloride 0.9% 50 ML IVPB SCH (11:00)
[2023-02-04 11:29] LABS: #Monocytes 0.4 thou/uL (0.11-0.59); #Neutrophils 6.7 thou/uL (1.40-6.50); %Basophils 0.2 % (0.0-1.0); %Eosinophils 0.1 % (0.0-10.0); %Lymphocytes 13.4 % (21.0-51.0); %Monocytes 4.3 % (0.0-10.0); %Neutrophils 81.8 % (42.0-75.0); Hematocrit 39.4 % (36.0-47.0); Hemoglobin 12.7 g/dL (12.0-16.0); Mean Corpuscular HGB CONC 32.2 g/dL (32.0-36.0); Mean Corpuscular Hemoglobin 31.9 pg (27.0-31.0); Mean Platelet Volume 10.4 fL (7.4-10.4); Platelet Count 243 10x3/uL (130-400); RBC Distribution Width 13.2 % (11.5-14.5); Red Blood Cell (RBC) Count 3.98 mill/uL (4.20-5.40); White Blood Cell (WBC) Count 8.2 10x3/uL (4.8-10.8)
[2023-02-04 11:51] LABS: ALT (SGPT) 9 U/L (8-55); AST (SGOT) 12 U/L (5-34); Albumin 4.1 g/dL (3.5-5.0); Alkaline Phosphatase 80 U/L (40-110); Anion Gap 12 mmol/L (10-20); BUN (Urea Nitrogen) 13 mg/dL (7.0-18.7); Bilirubin, Total 0.4 mg/dL (0.2-1.2); Calc. Creatinine Clearance 0 mL/min (70-130); Calcium 8.9 mg/dL (7.8-10.44); Carbon Dioxide 18 mmol/L (22-29); Chloride 114 mmol/L (98-107); Estimated GFR 61; Globulin 2.5 g/dL (2.4-3.5); Glucose 103 mg/dL (70-105); Potassium 3.9 mmol/L (3.5-5.1); Protein, Total 6.6 g/dL (6.0-8.3); Sodium 140 mmol/L (136-145)
[2023-02-04 11:57] LABS: Acetaminophen Less than 10 mcg/mL (10.0-30.0); Alcohol Less than 10.0 mg/dL (Less than 10); Lipase 54 U/L (8-78); Salicylate Less than 8.0 mg/dL (15.0-30.0)
== END 2023-02-04 13:02 | disposition home or self-care (01) ==
LOC: ERS 09:12
DX: K29.70 Gastritis, unspecified, without bleeding (principal); R11.2 Nausea with vomiting, unspecified; R56.9 Unspecified convulsions; R53.1 Weakness; I10 Essential (primary) hypertension
CPT/HCPCS: 36415; 80053; 80307; 83605; 83690; 83735; 85025; 96361; 96365; J2550

== ENCOUNTER 2023-03-15 09:04 | Outpatient (CLI) | payer BC | END 2023-03-15 09:05 | disposition home or self-care (01) | LOC: BICRAD 09:04 | PROVIDERS: ATTEND Urology | DX: N20.1 Calculus of ureter (principal); N28.1 Cyst of kidney, acquired; Z98.890 Other specified postprocedural states | CPT/HCPCS: 74018 ==

== ENCOUNTER 2023-07-28 20:48 | Emergency (ER) | payer BC ==
[~2023-07-28 20:48] MED LIST: Iopamidol-370 76% 500 ML MDV (1 ML CHARGE) ONE
[2023-07-28] MEDS ORDERED: Metoclopramide HCl 10 MG (2 mL) VIAL ONE (21:05)
[2023-07-28] MEDS ORDERED: diphenhydrAMINE 50 MG/ML VIAL ONE (21:05)
[2023-07-28 22:36] LABS: #Basophils 0.03 10x3/uL (0.0-0.2); #Eosinphils Less than 0.03 10x3/uL (0.0-0.7); %Basophils 0.2 % (0.0-1.0); %Eosinophils 0.1 % (0.0-10.0); RBC Distribution Width 12.5 % (11.5-14.5)
[2023-07-28 22:49] LABS: Lipase 28 U/L (8-78)
[2023-07-28 22:52] LABS: Acetaminophen Less than 10 mcg/mL (10.0-30.0); Alcohol Less than 10.0 mg/dL (Less than 10); Salicylate Less than 8.0 mg/dL (15.0-30.0)
[2023-07-28 22:53] LABS: ALT (SGPT) 26 U/L (8-55); AST (SGOT) 29 U/L (5-34); Albumin 3.7 g/dL (3.5-5.0); Alkaline Phosphatase 92 U/L (40-110); Anion Gap 13 mmol/L (10-20); BUN (Urea Nitrogen) 11 mg/dL (7.0-18.7); Bilirubin, Total 0.4 mg/dL (0.2-1.2); CK (CPK) 58 U/L (29-168); Calc. Creatinine Clearance 0 mL/min (70-130); Calcium 8.8 mg/dL (7.8-10.44); Carbon Dioxide 20 mmol/L (22-29); Chloride 112 mmol/L (98-107); Estimated GFR 76; Glucose 137 mg/dL (70-105); Potassium 3.2 mmol/L (3.5-5.1); Protein, Total 6.7 g/dL (6.0-8.3); Sodium 142 mmol/L (136-145)
[2023-07-28 22:55] LABS: BHCG - Serum Negative (NEGATIVE); Pregs Control Background? CLEAR/WHITE (CLR/WHITE); Pregs Control Bar Appear? YES (CONTROL BAR)
[2023-07-28 22:56] LABS: Troponin I Less than 0.010 ng/mL (< 0.028)
[2023-07-28 22:58] LABS: %Lymphocytes 11.8 % (21.0-51.0); %Monocytes 6.2 % (0.0-10.0); %Neutrophils 81.2 % (42.0-75.0); Hematocrit 39.6 % (36.0-47.0); Hemoglobin 13.4 g/dL (12.0-16.0); Mean Corpuscular HGB CONC 33.8 g/dL (32.0-36.0); Mean Corpuscular Hemoglobin 32.8 pg (27.0-31.0); Mean Corpuscular Volume 96.8 fL (78.0-98.0); Mean Platelet Volume 10.1 fL (7.4-10.4); Platelet Count 241 10x3/uL (130-400); Red Blood Cell (RBC) Count 4.09 mill/uL (4.20-5.40)
[2023-07-28 23:08] LABS: Influenza A by NAA Not Detected (NotDetected); Influenza B by NAA Not Detected (NotDetected); SARS-CoV-2 NAA Rapid Test Not Detected (NotDetected)
[2023-07-28] MEDS ORDERED: Dexamethasone 10 MG/ML VIAL ONE (23:27)
[2023-07-29] MEDS ORDERED: Dexamethasone 10 MG/ML VIAL ONE (01:10)
== END 2023-07-29 02:45 | disposition home or self-care (01) ==
LOC: ERS 20:48
DX: S09.90XA Unspecified injury of head, initial encounter (principal); H53.2 Diplopia; R11.2 Nausea with vomiting, unspecified; I10 Essential (primary) hypertension; E78.5 Hyperlipidemia, unspecified; W18.09XA Striking against other object with subsequent fall, initial encounter; Y92.009 Unspecified place in unspecified non-institutional (private) residence as the place of occurrence of the external cause; Z86.73 Personal history of transient ischemic attack (TIA), and cerebral infarction without residual deficits; Z79.82 Long term (current) use of aspirin; Z79.899 Other long term (current) drug therapy
CPT/HCPCS: 36415; 70450; 71045; 71275; 80053; 80307; 82140; 82550; 83690; 83880; 84443; 84484; 84703; 85025; 85379; 87040; 87149; 93005; 96361; 96365; 96375; J1100; J1200; J2765; Q9967

== ENCOUNTER 2023-08-01 09:15 | Inpatient (IN) | payer BC ==
[2023-08-01] MEDS ORDERED: Ondansetron PF 4 MG/2 ML Vial ONE (10:30)
[2023-08-01 11:04] LABS: BHCG - Serum Negative (NEGATIVE); Pregs Control Background? CLEAR/WHITE (CLR/WHITE); Pregs Control Bar Appear? YES (CONTROL BAR)
[2023-08-01 11:09] LABS: ALT (SGPT) 18 U/L (8-55); AST (SGOT) 16 U/L (5-34); Albumin 3.9 g/dL (3.5-5.0); Alkaline Phosphatase 92 U/L (40-110); Anion Gap 13 mmol/L (10-20); BUN (Urea Nitrogen) 11 mg/dL (7.0-18.7); Bilirubin, Total 0.8 mg/dL (0.2-1.2); Calc. Creatinine Clearance 0 mL/min (70-130); Calcium 9.4 mg/dL (7.8-10.44); Carbon Dioxide 20 mmol/L (22-29); Chloride 109 mmol/L (98-107); Estimated GFR 65; Globulin 3.2 g/dL (2.4-3.5); Glucose 114 mg/dL (70-105); Potassium 3.6 mmol/L (3.5-5.1); Protein, Total 7.1 g/dL (6.0-8.3); Sodium 138 mmol/L (136-145)
[2023-08-01 11:18] LABS: #Basophils Less than 0.03 10x3/uL (0.0-0.2); #Eosinphils Less than 0.03 10x3/uL (0.0-0.7); %Basophils 0.2 % (0.0-1.0); %Eosinophils 0.1 % (0.0-10.0); %Lymphocytes 9.6 % (21.0-51.0); %Monocytes 6.3 % (0.0-10.0); %Neutrophils 83.3 % (42.0-75.0); Hematocrit 43.9 % (36.0-47.0); Mean Corpuscular HGB CONC 34.2 g/dL (32.0-36.0); Mean Corpuscular Hemoglobin 32.9 pg (27.0-31.0); Mean Corpuscular Volume 96.3 fL (78.0-98.0); Mean Platelet Volume 10.4 fL (7.4-10.4); Platelet Count 229 10x3/uL (130-400); RBC Distribution Width 12.7 % (11.5-14.5); Red Blood Cell (RBC) Count 4.56 mill/uL (4.20-5.40)
[2023-08-01] MEDS ORDERED: Promethazine HCl 12.5 MG in Sodium Chloride 0.9% 50 ML IVPB PRN (12:18)
[2023-08-01] MEDS ORDERED: Acetaminophen 325 MG TAB PO PRN (12:20)
[2023-08-01] MEDS: Dextrose 5 %-0.45 % NaCl 1,000 ML IV SCH (15:17)
[2023-08-01 15:19] VITALS: BMI 36.1
[2023-08-01] MEDS: Famotidine/PF 20 mg/2ml Vial SLOW IVP SCH (21:16)
[2023-08-01] MEDS: Lacosamide 50 mg Tablet PO SCH (21:16)
[2023-08-01] MEDS: levETIRAcetam 500 MG TAB PO SCH (21:16)
[2023-08-01] MEDS: Apixaban 5 MG TAB PO SCH (21:16)
[2023-08-01] MEDS: Zonisamide 100 MG CAP PO SCH (22:04)
[2023-08-02 05:48] LABS: #Basophils Less than 0.03 10x3/uL (0.0-0.2); #Eosinphils Less than 0.03 10x3/uL (0.0-0.7); %Basophils 0.2 % (0.0-1.0); %Eosinophils 0.2 % (0.0-10.0); %Lymphocytes 21.7 % (21.0-51.0); %Monocytes 6.5 % (0.0-10.0); %Neutrophils 71.2 % (42.0-75.0); Hematocrit 38.2 % (36.0-47.0); Hemoglobin 13.1 g/dL (12.0-16.0); Mean Corpuscular HGB CONC 34.3 g/dL (32.0-36.0); Mean Corpuscular Hemoglobin 32.7 pg (27.0-31.0); Mean Corpuscular Volume 95.3 fL (78.0-98.0); Mean Platelet Volume 10.1 fL (7.4-10.4); Platelet Count 227 10x3/uL (130-400); RBC Distribution Width 12.7 % (11.5-14.5); Red Blood Cell (RBC) Count 4.01 mill/uL (4.20-5.40)
[2023-08-02 06:03] LABS: ALT (SGPT) 13 U/L (8-55); AST (SGOT) 12 U/L (5-34); Albumin 3.3 g/dL (3.5-5.0); Alkaline Phosphatase 81 U/L (40-110); Anion Gap 10 mmol/L (10-20); BUN (Urea Nitrogen) 9 mg/dL (7.0-18.7); Bilirubin, Total 1.1 mg/dL (0.2-1.2); Calc. Creatinine Clearance 125 mL/min (70-130); Calcium 8.9 mg/dL (7.8-10.44); Carbon Dioxide 20 mmol/L (22-29); Chloride 111 mmol/L (98-107); Estimated GFR 76; Globulin 2.6 g/dL (2.4-3.5); Glucose 107 mg/dL (70-105); Potassium 3.6 mmol/L (3.5-5.1); Protein, Total 5.9 g/dL (6.0-8.3); Sodium 137 mmol/L (136-145)
[2023-08-02] MEDS: Zonisamide 100 MG CAP PO SCH (08:10)
[2023-08-02] MEDS: Amlodipine 5 MG TAB PO SCH (08:12)
[2023-08-02] MEDS: Valsartan 80 MG TAB PO SCH (08:12)
[2023-08-02] MEDS: Folic Acid 1 MG TAB PO SCH (08:12)
[2023-08-02 11:03] VITALS: BMI 36.1
[2023-08-02] MEDS: Ondansetron PF 4 MG/2 ML Vial IVP PRN (11:20)
[2023-08-02] MEDS: Metoclopramide HCl 10 MG (2 mL) VIAL IVP SCH (21:22)
[2023-08-03 05:18] LABS: #Basophils 0.03 10x3/uL (0.0-0.2); %Basophils 0.3 % (0.0-1.0); %Eosinophils 0.4 % (0.0-10.0); %Lymphocytes 19.6 % (21.0-51.0); %Monocytes 7.4 % (0.0-10.0); Hematocrit 41.2 % (36.0-47.0); Hemoglobin 13.9 g/dL (12.0-16.0); Mean Corpuscular HGB CONC 33.7 g/dL (32.0-36.0); Mean Corpuscular Hemoglobin 32.7 pg (27.0-31.0); Mean Corpuscular Volume 96.9 fL (78.0-98.0); Mean Platelet Volume 9.9 fL (7.4-10.4); Platelet Count 230 10x3/uL (130-400); RBC Distribution Width 12.7 % (11.5-14.5); Red Blood Cell (RBC) Count 4.25 mill/uL (4.20-5.40)
[2023-08-03 06:06] LABS: ALT (SGPT) 13 U/L (8-55); AST (SGOT) 20 U/L (5-34); Albumin 3.4 g/dL (3.5-5.0); Alkaline Phosphatase 80 U/L (40-110); Anion Gap 11 mmol/L (10-20); BUN (Urea Nitrogen) 8 mg/dL (7.0-18.7); Bilirubin, Total 0.8 mg/dL (0.2-1.2); Calc. Creatinine Clearance 120 mL/min (70-130); Calcium 9.1 mg/dL (7.8-10.44); Carbon Dioxide 20 mmol/L (22-29); Chloride 111 mmol/L (98-107); Estimated GFR 72; Globulin 3.1 g/dL (2.4-3.5); Glucose 103 mg/dL (70-105); Potassium 4.4 mmol/L (3.5-5.1); Protein, Total 6.5 g/dL (6.0-8.3); Sodium 138 mmol/L (136-145)
[2023-08-03 11:18] VITALS: BP 145/53; TEMP 98.2
== END 2023-08-03 12:50 | disposition home or self-care (01) | DRG 54 ==
LOC: ERS 09:15 → ERHOLD 12:11 → MSONC 14:45
PROVIDERS: ADMIT Student in an Organized Health Care Education/Training Program; ATTEND Internal Medicine
DX: D49.6 Neoplasm of unspecified behavior of brain (principal); I26.99 Other pulmonary embolism without acute cor pulmonale; I82.401 Acute embolism and thrombosis of unspecified deep veins of right lower extremity; R11.2 Nausea with vomiting, unspecified; G40.909 Epilepsy, unspecified, not intractable, without status epilepticus; I10 Essential (primary) hypertension; E86.0 Dehydration; E66.9 Obesity, unspecified; E88.09 Other disorders of plasma-protein metabolism, not elsewhere classified; Z79.82 Long term (current) use of aspirin; Z88.8 Allergy status to other drugs, medicaments and biological substances; Z79.899 Other long term (current) drug therapy; Z79.01 Long term (current) use of anticoagulants
CPT/HCPCS: 36415; 70450; 70553; 74018; 80053; 84703; 85025; 93005; 96361; 96374; J2405; J2765; J7042; S0028

== ENCOUNTER 2025-01-14 10:00 | Outpatient (CLI) | payer BC | END 2025-01-14 10:01 | disposition home or self-care (01) | LOC: SCSRAD 10:00 | PROVIDERS: ATTEND Urology | DX: M25.571 Pain in right ankle and joints of right foot (principal); N28.1 Cyst of kidney, acquired; Z87.442 Personal history of urinary calculi | CPT/HCPCS: 74018 ==